=== PATIENT | female | born 1980 | race Caucasian/White ===

== ENCOUNTER 2022-05-17 15:03 | Outpatient (CLI) | payer MEDICARE, MEDICAID, SELFPAY ==
[2022-05-17 15:51] VITALS: BMI 51.8
== END 2022-05-17 15:04 | disposition home or self-care (01) ==
LOC: NUTRITION 15:04
PROVIDERS: PCP Family Medicine; Visit Provider Dietitian, Registered
DX: Z71.3 Dietary counseling and surveillance (principal); E66.9 Obesity, unspecified
CPT/HCPCS: 99211

== ENCOUNTER 2022-12-05 14:10 | Outpatient (CLI) | payer MEDICARE, MEDICAID, SELFPAY | END 2022-12-05 14:11 | disposition home or self-care (01) | LOC: AMB 12-10 13:19 | PROVIDERS: PCP Family Medicine; Visit Provider Emergency Medicine | DX: R20.0 Anesthesia of skin (principal) | CPT/HCPCS: A0425; A0427 ==

== ENCOUNTER 2022-12-05 14:37 | Emergency (ER) | payer MEDICARE, MEDICAID, SELFPAY ==
[2022-12-05 14:39] VITALS: BP 105/70; PULSE 112; RESP 16; TEMP 38.2; O2SAT 94; BMI 52.2
[2022-12-05 15:40] LABS: PCR FLU A Negative PCR FLU A (Negative); PCR FLU B Negative PCR FLU B (Negative)
[2022-12-05 16:09] LABS: SARS PCR* POSITIVE SARS-CoV-2 (Negative)
--- NOTE | 2022-12-05 16:45 | ED.GENADULT ---
HPI - General Adult General Chief complaint: Anxiety Stated complaint: High BP, knees tight Time Seen by Provider: 12/05/22 16:30 History of Present Illness HPI narrative: This 42-year-old female comes in reporting some generalized malaise. She arrives with a temperature of 100.8? F. she states that these symptoms seemed to begin early this morning about 7:00 a.m.. She has a history of anxiety and states that she felt some tingling in her arms and upper legs at various times. She has had symptoms like this in the past that she attributes to anxiety. She also has bilateral carpal tunnel syndrome. She states that she wants to have a COVID test as she was exposed to some people with COVID recently. She does not report any cough or shortness of breath. Related Data Home Medications Medication Instructions Recorded Confirmed buspirone 30 mg tablet 30 mg PO BID 12/05/22 12/05/22 calcium acetate .ROUTE 12/05/22 dulaglutide 0.75 mg/0.5 mL 0.75 mg subcut 12/05/22 [facility] duloxetine 60 mg capsule,delayed 60 mg PO DAILY 12/05/22 12/05/22 release famotidine 20 mg tablet 20 mg PO BID 12/05/22 12/05/22 fexofenadine 180 mg tablet 180 mg PO DAILY 12/05/22 12/05/22 glipizide 5 mg tablet, extended 5 mg PO DAILY 12/05/22 12/05/22 release 24 hr lancets 33 gauge (TRUEplus Lancets) 12/05/22 12/05/22 omeprazole 40 mg capsule,delayed 40 mg PO DAILY 12/05/22 12/05/22 release rosuvastatin 10 mg tablet 10 mg PO QPM 12/05/22 12/05/22 Previous Rx's Medication Instructions Recorded nirmatrelvir 150 mg-ritonavir 100 See Rx Instructions PO .COMPLEX 12/05/22 mg tablets in a dose pack #20 ea (Paxlovid) Allergies Allergy/AdvReac Type Severity Reaction Status Date / Time citalopram Allergy Unknown Verified 12/05/22 14:49 sertraline Allergy Unknown red face Verified 12/05/22 14:49 metformin AdvReac Mild Diarrhea Verified 12/05/22 14:49 Review of Systems Status of ROS: Reports: 10 or more systems reviewed and unremarkable except as noted in History and below Narrative: Constitutional: No fevers, no weight gain or loss. Eyes: No discharge. No vision changes. HENT: No congestion, no sore throat, no ear pain. Cardiovascular: No chest pain, no palpitations. Respiratory: No shortness of breath, no wheezes, no cough. Gastrointestinal: No abdominal pain, no vomiting, no diarrhea. Genitourinary: No dysuria, no hematuria. Musculoskeletal: Normal range of motion. Bilateral carpal tunnel syndrome. Skin: No rashes, no pruritis. Neurological: No dizziness, weakness, speech change. Tingling sensations that come and go that she attributes to anxiety. Endo/Heme/Allergies: No bruising or bleeding. No polydipsia. Pysch: no suicidality, no anxiety, no insomnia. All other systems reviewed and are negative. [facility] Surgical History (Updated 10/26/21 @ 10:32 by Derrick Frazier) Status post dilation and curettage ?Z98.890 - Other specified postprocedural states (ICD-10) Social History Smoking Status: Never smoker Do you use any of these nicotine containing products: None Second hand tobacco smoke exposure: No How often do you have a drink containing alcohol: never AUDIT-C Alcohol total score: 0 Non-prescribed substance use: denies use Exam Narrative: Exam Narrative: Constitutional: Well-developed, well-nourished, no acute distress. HEENT: Normocephalic, atraumatic. Neck: Normal range of motion. Nontender. Supple. Heart: Regular. No murmurs. Tachycardia. Intact distal pulses. Lungs: Clear to auscultation. No chest discomfort. No wheezes, rhonchi, or rales. Abdomen: Normal bowel sounds. Nontender. No rebound tenderness. Genitalia: Deferred. Back: No midline tenderness. Normal range of motion. Extremities: Normal range of motion. No injury. Skin: Intact. No rash. Warm. No erythema or pallor. Neurologic: No weakness. Alert and oriented. Tingling sensations coming and going in her upper and lower extremities. No unilateral weakness. Speech is normal. No facial asymmetry. She is ambulatory. Psychiatric: No suicidality. No insomnia. She reports anxiety symptoms. Nursing notes and vitals signs are reviewed. Const: Vital Signs, click to edit/add: Vital Signs - 24 hr 12/05/22 14:39 Temperature 100.8 F H Pulse Rate [Pulse Oximeter] 112 H Respiratory Rate 16 Blood Pressure [Ri ght Upper Arm] 105/70 Pulse Oximetry 94 Oxygen Delivery Me thod Room Air Course Vital Signs Vital signs: Initial Vital Signs Temperature 100.8 F H 12/05/22 14:39 Temperature Source Temporal Artery Scan 12/05/22 14:39 Pulse Rate 112 H 12/05/22 14:39 Respiratory Rate 16 12/05/22 14:39 Blood Pressure 105/70 12/05/22 14:39 Blood Pressure Mean 81 12/05/22 14:39 Blood Pressure Position Sitting 12/05/22 14:39 Pulse Oximetry 94 12/05/22 14:39 Oxygen Delivery Method Room Air 12/05/22 14:39 Vital Signs Temperature 100.8 F H 12/05/22 14:39 Pulse Rate 112 H 12/05/22 14:39 Respiratory Rate 16 12/05/22 14:39 Blood Pressure 105/70 12/05/22 14:39 Pulse Oximetry 94 12/05/22 14:39 Oxygen Delivery Method Room Air 12/05/22 14:39 Temperature 100.8 F H 12/05/22 14:39 Pulse Rate 112 H 12/05/22 14:39 Respiratory Rate 16 12/05/22 14:39 Blood Pressure 105/70 12/05/22 14:39 Pulse Oximetry 94 12/05/22 14:39 Oxygen Delivery Method Room Air 12/05/22 14:39 Medical Decision Making MDM Narrative Medical decision making narrative: This patient comes in with a fever at 100.8? F. Her symptoms began this morning. She had some associated anxiety symptoms. She was suspicious of a COVID infection as she was around some people who tested positive in the past week. COVID test today here does return positive for her. She is a candidate for Paxil of it and is interested in taking this medication. She does not have any medications she is taking that are contraindicated when taking Paxil of it. Lab Data Labs: Lab Results 12/05/22 Range/Units 14:50 SARS-CoV-2 (PCR) POSITIVE SARS-CoV-2 A (Negative) Influenza Type A (PCR) Negative PCR FLU A (Negative) Influenza Type B (PCR) Negative PCR FLU B (Negative) Discharge Plan Discharge Clinical Impression: Infection due to severe acute respiratory syndrome coronavirus 2 (SARS-CoV-2) Patient Disposition: Home, Self-Care Condition: Stable Prescriptions: New Paxlovid 150-100 mg tablets,dose pack See Rx Instructions .ROUTE .COMPLEX Qty: 20 0RF Rx Instructions: orally per package directions No Action buspirone 30 mg tablet 30 mg PO BID calcium acetate .ROUTE glipizide 5 mg tablet extended release 24hr 5 mg PO DAILY fexofenadine 180 mg tablet 180 mg PO DAILY omeprazole 40 mg capsule,delayed release(DR/EC) 40 mg PO DAILY famotidine 20 mg tablet 20 mg PO BID rosuvastatin 10 mg tablet 10 mg PO QPM duloxetine 60 mg capsule,delayed release(DR/EC) 60 mg PO DAILY (DME) lancets [TRUEplus Lancets] 33 gauge misc MISCELLANEOUS BID Trulicity 0.75 mg/0.5 mL pen injector 0.75 mg subcut Follow Up/Referrals: Mgay Zamudio DO [Primary Care Provider] - Stand Alone [facility]
[2022-12-05 17:39] VITALS: BP 112/74; PULSE 98; RESP 16; TEMP 38.2
== END 2022-12-05 17:39 | disposition home or self-care (01) ==
LOC: ED 17:01
PROVIDERS: Emergency Provider Emergency Medicine Emergency Medical Services; PCP Family Medicine
DX: U07.1 COVID-19 (principal)
CPT/HCPCS: 87631; 99283; 99284

== ENCOUNTER 2023-09-18 07:27 | Outpatient (CLI) | payer MEDICARE, MEDICAID, SELFPAY ==
--- NOTE | 2023-09-18 08:36 | W.ANESCHARGE ---
Anesthesia Charges Start Date/Time Anesthesia Start Date: 09/18/23 Anesthesia Start Time: 08:30 Stop Date/Time Anesthesia Stop Date: 09/18/23 Anesthesia Stop Time: 09:04
--- NOTE | 2023-09-18 09:07 | W.ANESCHARGE ---
Anesthesia Charges Start Date/Time Anesthesia Start Date: 09/18/23 Anesthesia Start Time: 08:30 Stop Date/Time Anesthesia Stop Date: 09/18/23 Anesthesia Stop Time: 09:04
== END 2023-09-18 07:28 | disposition home or self-care (01) ==
LOC: OP CLINIC 07:29
PROVIDERS: PCP Family Medicine; Visit Provider Internal Medicine Gastroenterology
DX: K92.1 Melena (principal); K63.5 Polyp of colon; K62.1 Rectal polyp; K64.8 Other hemorrhoids
CPT/HCPCS: 00811; 45380; 45385; 88305; J2704

== ENCOUNTER 2023-09-20 21:48 | Outpatient (CLI) | payer MEDICARE, MEDICAID, SELFPAY | END 2023-09-20 21:49 | disposition home or self-care (01) | LOC: AMB 09-25 13:10 | PROVIDERS: PCP Family Medicine; Visit Provider Emergency Medicine Emergency Medical Services | DX: F41.9 Anxiety disorder, unspecified (principal) | CPT/HCPCS: A0425; A0429 ==

== ENCOUNTER 2023-09-20 22:09 | Emergency (ER) | payer MEDICARE, MEDICAID, SELFPAY ==
[2023-09-20 22:11] VITALS: BP 160/88; PULSE 73; RESP 18; TEMP 36.8; O2SAT 96; BMI 52.6
--- NOTE | 2023-09-20 22:56 | ED_ITS ---
HPI - Anxiety General Time Seen by Provider: 22:56 Date Seen: 09/20/23 Chief Complaint: Anxiety Stated Complaint: anxiety Time Seen by Provider: 09/20/23 22:56 Source: patient, family and old records reviewed Mode of arrival: ambulatory Limitations: no limitations Related Data Home Medications ?Medication ?Instructions ?Recorded ?Confirmed buspirone 30 mg tablet 30 mg PO BID 12/05/22 12/05/22 calcium acetate .ROUTE 12/05/22 dulaglutide 0.75 mg/0.5 mL 0.75 mg subcut 12/05/22 subcutaneous pen injector (Trulicity) duloxetine 60 mg capsule,delayed 60 mg PO DAILY 12/05/22 12/05/22 release famotidine 20 mg tablet 20 mg PO BID 12/05/22 12/05/22 fexofenadine 180 mg tablet 180 mg PO DAILY 12/05/22 12/05/22 glipizide 5 mg tablet, extended 5 mg PO DAILY 12/05/22 12/05/22 release 24 hr lancets 33 gauge (TRUEplus Lancets) 12/05/22 12/05/22 omeprazole 40 mg capsule,delayed 40 mg PO DAILY 12/05/22 12/05/22 release rosuvastatin 10 mg tablet 10 mg PO QPM 12/05/22 12/05/22 Previous Rx's ?Medication ?Instructions ?Recorded nirmatrelvir 150 mg-ritonavir 100 See Rx Instructions PO .COMPLEX 12/05/22 mg tablets in a dose pack #20 ea (Paxlovid) Allergies Allergy/AdvReac Type Severity Reaction Status Date / Time citalopram Allergy Unknown Verified 09/18/23 07:37 sertraline Allergy Unknown red face Verified 09/18/23 07:37 lisinopril Allergy Verified 09/18/23 07:37 metformin AdvReac Mild Diarrhea Verified 09/18/23 07:37 [facility] Surgical History (Updated 10/26/21 @ 10:32 by Derrick Frazier) Status post dilation and curettage ?Z98.890 - Other specified postprocedural states (ICD-10) Social History Smoking Status: Never smoker Do you use any of these nicotine containing products: None Second hand tobacco smoke exposure: No How often do you have a drink containing alcohol: never AUDIT-C Alcohol total score: 0 Non-prescribed substance use: denies use Exam Const: Vital Signs, click to edit/add: Vital Signs - 24 hr 09/20/23 22:11 Temperature 98.3 F Pulse Rate [Left P ulse Oximeter] 73 Respiratory Rate 18 Blood Pressure [Ri ght Upper Arm] 160/88 H Pulse Oximetry 96 Oxygen Delivery Me thod Room Air Course Vital Signs Vital signs: Initial Vital Signs Temperature 98.3 F 09/20/23 22:11 Temperature Source Temporal Artery Scan 09/20/23 22:11 Pulse Rate 73 09/20/23 22:11 Pulse Rhythm Regular 09/20/23 22:11 Respiratory Rate 18 09/20/23 22:11 Blood Pressure 160/88 H 09/20/23 22:11 Blood Pressure Mean 112 H 09/20/23 22:11 Blood Pressure Position Sitting 09/20/23 22:11 Pulse Oximetry 96 09/20/23 22:11 Oxygen Delivery Method Room Air 09/20/23 22:11 Vital Signs Temperature 98.3 F 09/20/23 22:11 Pulse Rate 73 09/20/23 22:11 Respiratory Rate 18 09/20/23 22:11 Blood Pressure 160/88 H 09/20/23 22:11 Pulse Oximetry 96 09/20/23 22:11 Oxygen Delivery Method Room Air 09/20/23 22:11 Temperature 98.3 F 09/20/23 22:11 Pulse Rate 73 09/20/23 22:11 Respiratory Rate 18 09/20/23 22:11 Blood Pressure 160/88 H 09/20/23 22:11 Pulse Oximetry 96 09/20/23 22:11 Oxygen Delivery Method Room Air 09/20/23 22:11 Discharge Plan Discharge Prescriptions: No Action buspirone 30 mg tablet 30 mg PO BID calcium acetate .ROUTE glipizide 5 mg tablet extended release 24hr 5 mg PO DAILY fexofenadine 180 mg tablet 180 mg PO DAILY omeprazole 40 mg capsule,delayed release(DR/EC) 40 mg PO DAILY famotidine 20 mg tablet 20 mg PO BID rosuvastatin 10 mg tablet 10 mg PO QPM duloxetine 60 mg capsule,delayed release(DR/EC) 60 mg PO DAILY (DME) lancets [TRUEplus Lancets] 33 gauge misc MISCELLANEOUS BID Trulicity 0.75 mg/0.5 mL pen injector 0.75 mg subcut Paxlovid 150-100 mg tablets,dose pack See Rx Instructions .ROUTE .COMPLEX Qty: 20 0RF Rx Instructions: orally per package directions Follow Up/Referrals: Magy Zamudio DO [Primary Care Provider] -
--- NOTE | 2023-09-20 22:58 | ED.GENADULT ---
HPI - General Adult General Chief complaint: Anxiety Stated complaint: anxiety Time Seen by Provider: 09/20/23 22:56 History of Present Illness HPI narrative: pt with increased anxiety. called triage line, told to be seen . Frustrated with work, needs answers to be cleared to go back to work from [employer] . Took Hydroxyzine, 10mg prior to EMS arrival. 43-year-old woman presenting to the emergency department with concern of exacerbation of anxiety. Brought by EMS. She describes significant exacerbation of anxiety which did include tingling hands and feet. Tried her hydroxyzine but did not work. Apparently recommended by triage line to be seen in the ER. Stressors noted to be related to work/workability and working with the [employer]. Called parents who happened to be in [place] return to accompany her in the emergency department. Chronic history of anxiety. Otherwise currently she notes herself to be treated with duloxetine and buspirone. She is not describing current chest pain or shortness of breath. She is hoping yet to sleep tonight. She does have an appointment with primary tomorrow. Related Data Home Medications ?Medication ?Instructions ?Recorded ?Confirmed buspirone 30 mg tablet 30 mg PO BID 12/05/22 12/05/22 calcium acetate .ROUTE 12/05/22 dulaglutide 0.75 mg/0.5 mL 0.75 mg subcut 12/05/22 subcutaneous pen injector (Trulicity) duloxetine 60 mg capsule,delayed 60 mg PO DAILY 12/05/22 12/05/22 release famotidine 20 mg tablet 20 mg PO BID 12/05/22 12/05/22 fexofenadine 180 mg tablet 180 mg PO DAILY 12/05/22 12/05/22 glipizide 5 mg tablet, extended 5 mg PO DAILY 12/05/22 12/05/22 release 24 hr lancets 33 gauge (TRUEplus Lancets) 12/05/22 12/05/22 omeprazole 40 mg capsule,delayed 40 mg PO DAILY 12/05/22 12/05/22 release rosuvastatin 10 mg tablet 10 mg PO QPM 12/05/22 12/05/22 Previous Rx's ?Medication ?Instructions ?Recorded nirmatrelvir 150 mg-ritonavir 100 See Rx Instructions PO .COMPLEX 12/05/22 mg tablets in a dose pack #20 ea (Paxlovid) Allergies Allergy/AdvReac Type Severity Reaction Status Date / Time citalopram Allergy Unknown Verified 09/18/23 07:37 sertraline Allergy Unknown red face Verified 09/18/23 07:37 lisinopril Allergy Verified 09/18/23 07:37 metformin AdvReac Mild Diarrhea Verified 09/18/23 07:37 Review of Systems Status of ROS: Reports: 6 or more systems reviewed and unremarkable except as noted in History and below PFSH PFS Surgical History Status post dilation and curettage ?Z98.890 - Other specified postprocedural states (ICD-10) Social History Smoking Status: Never smoker Do you use any of these nicotine containing products: None Second hand tobacco smoke exposure: No How often do you have a drink containing alcohol: never AUDIT-C Alcohol total score: 0 Non-prescribed substance use: denies use Exam Narrative: Exam Narrative: Pleasant. NAD. Here with supportive parents. Larger stature, overweight. Skin is warm and dry. Heart regular rate rhythm. Moving all extremities without difficulty. She is well-perfused. Appears introspective. Const: Vital Signs, click to edit/add: Vital Signs - 24 hr 09/20/23 22:11 Temperature 98.3 F Pulse Rate [Left P ulse Oximeter] 73 Respiratory Rate 18 Blood Pressure [Ri ght Upper Arm] 160/88 H Pulse Oximetry 96 Oxygen Delivery Me thod Room Air Documenting provider has reviewed patient's vital signs: yes Course Vital Signs Vital signs: Initial Vital Signs Temperature 98.3 F 09/20/23 22:11 Temperature Source Temporal Artery Scan 09/20/23 22:11 Pulse Rate 73 09/20/23 22:11 Pulse Rhythm Regular 09/20/23 22:11 Respiratory Rate 18 09/20/23 22:11 Blood Pressure 160/88 H 09/20/23 22:11 Blood Pressure Mean 112 H 09/20/23 22:11 Blood Pressure Position Sitting 09/20/23 22:11 Pulse Oximetry 96 09/20/23 22:11 Oxygen Delivery Method Room Air 09/20/23 22:11 Vital Signs Temperature 98.3 F 09/20/23 22:11 Pulse Rate 73 09/20/23 22:11 Respiratory Rate 18 09/20/23 22:11 Blood Pressure 160/88 H 09/20/23 22:11 Pulse Oximetry 96 09/20/23 22:11 Oxygen Delivery Method Room Air 09/20/23 22:11 Temperature 98.3 F 09/20/23 22:11 Pulse Rate 73 09/20/23 22:11 Respiratory Rate 18 09/20/23 22:11 Blood Pressure 160/88 H 09/20/23 22:11 Pulse Oximetry 96 09/20/23 22:11 Oxygen Delivery Method Room Air 09/20/23 22:11 Medications Administered Medications: Discontinued Medications Generic Name Dose Route Start Last Admin Trade Name Chineduq PRN Reason Stop Dose Admin Lorazepam 1 mg 09/20/23 23:03 09/20/23 23:30 Lorazepam 1 Mg Tablet PO 09/20/23 23:04 1 mg ONCE ONE Administration Lorazepam 1 mg 09/20/23 23:30 09/20/23 23:38 Lorazepam 1 Mg Tablet PO 09/20/23 23:31 Not Given ONCE ONE Lorazepam 1 mg 09/20/23 23:30 09/20/23 23:38 Lorazepam 1 Mg Tablet PO 1 mg ONCE PRN Administration Anxiety Medical Decision Making MDM Narrative Medical decision making narrative: From history relatively clear exacerbation of anxiety. Abortive medication did not appear to be adequately effective though she does appear now, admittedly with the presence of her parents, in a better space. Will offer a dose of lorazepam here in the emergency department and a couple tablets for home in anticipation of follow-up with primary care provider tomorrow to discuss further. Medical Records Medical records reviewed: Yes I reviewed the patient's medical records Discharge Plan Discharge Clinical Impression: Anxiety attack, Other social stressor Patient Disposition: Home w/ Parent or Adult Condition: Improved Additional Instructions: Please follow-up tomorrow with your primary care provider as planned/scheduled. Hopefully you to can come up with a good plan. Giving you a couple tablets of lorazepam in case you need in the meantime. Prescriptions: No Action buspirone 30 mg tablet 30 mg PO BID calcium acetate .ROUTE glipizide 5 mg tablet extended release 24hr 5 mg PO DAILY fexofenadine 180 mg tablet 180 mg PO DAILY omeprazole 40 mg capsule,delayed release(DR/EC) 40 mg PO DAILY famotidine 20 mg tablet 20 mg PO BID rosuvastatin 10 mg tablet 10 mg PO QPM duloxetine 60 mg capsule,delayed release(DR/EC) 60 mg PO DAILY (DME) lancets [TRUEplus Lancets] 33 gauge misc MISCELLANEOUS BID Trulicity 0.75 mg/0.5 mL pen injector 0.75 mg subcut Paxlovid 150-100 mg tablets,dose pack See Rx Instructions .ROUTE .COMPLEX Qty: 20 0RF Rx Instructions: orally per package directions Follow Up/Referrals: Magy Zamudio DO [Primary Care Provider] - Stand Alone Forms: [facility] Info Instructions
[2023-09-20] MEDS: LORazepam 1 MG TABLET PO ×2 (23:30→23:38)
== END 2023-09-20 23:43 | disposition home or self-care (01) ==
PROVIDERS: Emergency Provider Family Medicine; PCP Family Medicine
DX: F41.9 Anxiety disorder, unspecified (principal); F43.9 Reaction to severe stress, unspecified
CPT/HCPCS: 99283; 99284; A9270

== ENCOUNTER 2024-11-20 08:20 | Outpatient (CLI) | payer MEDICARE, MEDICAID, SELFPAY | END 2024-11-20 08:21 | disposition home or self-care (01) | LOC: AMB 11-21 15:19 | PROVIDERS: PCP Family Medicine; Visit Provider Family Medicine | DX: R07.89 Other chest pain (principal) | CPT/HCPCS: A0425; A0427 ==

== ENCOUNTER 2024-11-20 09:03 | Emergency (ER) | payer MEDICARE, MEDICAID, SELFPAY ==
[2024-11-20] VITALS (11 sets, daily range): BP systolic 120–157; BP diastolic 65–78; PULSE 73–81; RESP 13–20; TEMP 36.6; O2SAT 93–96; BMI 51.7
--- NOTE | 2024-11-20 09:18 | CRLHL7_ITS ---
For Patients: As a result of the Century Cures Act, medical imaging exams and procedure reports are released immediately into your electronic medical record. You may view this report before your referring provider. If you have questions, please contact your health care provider. INDICATION: Chest pain TECHNIQUE: Chest 2 views COMPARISON: None FINDINGS: Cardiovascular and mediastinum: Heart size and vasculature are normal in caliber and appearance. Lungs and pleural spaces: Lungs are clear. No sign of infiltrate or mass. No sign of pleural effusion. No pneumothorax. Bones and soft tissues: No significant findings. IMPRESSION: No acute findings. Dictated by Micheal Jeffries MD @ 11/20/2024 10:41:50 AM (Electronically Signed)
[2024-11-20 09:43] LABS: Hematocrit 36.4 % (33.0-51.0); Hemoglobin* 12.3 gm/dL (12.0-16.0); Immature Granulocytes Abs Auto 0.02 K/uL (0.00-0.30); Immature Granulocytes Pct Auto 0.3 %; Mean Corpuscular HGB Conc 34 gm/dL (32-36); Mean Corpuscular Hemoglobin 29 pg (26-34); Mean Corpuscular Volume 87 fL (80-100); RDW Coefficient of Variation % 13.0 % (11.5-15.5); Red Blood Count 4.20 m/uL (4.00-5.20); White Blood Count* 6.37 K/uL (4.50-11.00)
[2024-11-20 09:50] LABS: Troponin, Point-of-Care* 0.00 ng/ml (0.01-0.04)
[2024-11-20 09:53] LABS: Lymphocytes Absolute Auto 1.20 K/uL (0.90-2.90); Slide Review Reflex No
--- OUTSIDE RECORDS SUMMARY | 2024-11-20 09:56 | XMS_ITS | Clinical Summary ---
Author Organization [facility] Address [address] [place] [address] Care Team Providers Care Literacy Teacher Name Role Phone Magy Zamudio DO Primary Care Provider [phone] Rona Chamberlain PsyD, [place] Unavailable [phone] Yelena Sinclair RN Unavailable [phone] Allergies Active Allergy Reactions Criticality Noted Date Comments Citalopram Rash 04/16/2009 Lisinopril Cough 05/09/2022 Metformin Diarrhea Low 12/05/2022 Sertraline Anxiety 11/16/2016 Medications melatonin 5 mg capsule Take 1 capsule by mouth. 0 020 Active cholecalciferol (Vitamin D-3) 2,000 unit capsule Take 1 Capsule (2,000 units) by mouth once daily. 0 021 Active hydrOXYzine HCL (ATARAX) 10 mg tabletIndications :Anxiety 1-2 tablets twice daily as needed for anxiety 30 Tablet 1 024 Active Graduated Compression StockingsIndicati ons:Numbness and tingling of both lower extremities For personal use. Length: calf Strength: 16-20 mmHg Circumference in cm: For calf: Ankle 5.5cm, Calf 51, Ankle to calf length 28.5. 1 Packet 024 Active calcium carbonate-vitamin D3, 600 mg-400 unit, 600 mg-10 mcg (400 unit) tabletIndications :Routine general health check-up of defined subpopulation TAKE 1 TABLET BY MOUTH ONCE DAILY WITH A MEAL. 90 Tablet 3 024 Active cyanocobalamin (VITAMIN B12) 1,000 mcg tabletIndications :Vitamin B12 deficiency TAKE 1 TABLET (1,000 MCG) BY MOUTH ONCE DAILY. 90 Tablet 3 024 Active fexofenadine (Felicia Allergy) 180 mg tabletIndications :Allergic rhinitis, unspecified seasonality, unspecified trigger Take 180 mg by mouth once daily with a meal. Do not crush or chew. 90 Tablet 3 024 Active olopatadine (PATANOL) 0.1 % ophthalmic solutionIndicatio ns:Conjunctivitis , unspecified conjunctivitis type, unspecified laterality Place 1 Drop into both eyes two times daily. 5 mL 5 024 Active famotidine (PEPCID) 20 mg tabletIndications :Gastroesophageal reflux disease, unspecified whether esophagitis present Take 1 Tablet (20 mg) by mouth two times daily. 180 Tablet 2 024 Active rosuvastatin (CRESTOR) 10 mg tabletIndications :Hyperlipidemia, unspecified hyperlipidemia type Take 1 Tablet (10 mg) by mouth at bedtime. 90 Tablet 2 024 Active blood sugar diagnostic (Accu-Chek Guide test strips) stripIndications: Controlled type 2 diabetes mellitus without complication, without long-term current use of insulin (HC) As directed two times daily. Dispense item covered by pt ins. E11.9 NIDDM type II - Test 2 times/day. Reason: High A1C 200 Each 3 025 Active lancets (Accu-Chek Softclix Lancets)Indicatio ns:Controlled type 2 diabetes mellitus without complication, without long-term current use of insulin (HC) Test twice a day 200 Each 3 025 Active Accu-Chek Guide Me Glucose MtrIndications:Co ntrolled type 2 diabetes mellitus without complication, without long-term current use of insulin (HC) TEST ONCE DAILY 1 Each 025 Active omeprazole 40 mg Delayed-Release capsuleIndication s:Gastric reflux TAKE ONE CAPSULE BY MOUTH ONCE DAILY BEFORE A MEAL 90 Capsule 3 025 Active CPAPIndications:O SA (obstructive sleep apnea) RESMED CPAP (E0601) machine for home use at pressure: 8 cmw, Choice of mask (A7030 or A7034) w/full face cushion (A7031) x1/mo, nasal cushion (A7032) x2/mo, or nasal pillows (A7033) x 2/mo; Length of Need: 99 months; Frequency of use: Daily 1 Each 025 Active Diabetic ShoeIndications:D iabetic peripheral neuropathy associated with type 2 diabetes mellitus (HC) As directed. Diabetic shoes 1 pair 1 Each 025 Active DULoxetine 60 mg Delayed-release capsuleIndication s:Anxiety Take 30mg capsule with 60mg to equal 90mg daily 90 Capsule 1 025 Active DULoxetine 30 mg Delayed-release capsuleIndication s:Anxiety Take 30mg capsule with 60mg to equal 90mg daily 90 Capsule 3 025 Active dulaglutide 3 mg/0.5 mL subcutaneous penIndications:Un controlled type 2 diabetes mellitus with hyperglycemia (HC) Inject 3 mg subcutaneous once weekly. 6 mL 025 Active glipiZIDE extended-release (GLUCOTROL XL) 5 mg Extended-Release tabletIndications :Uncontrolled type 2 diabetes mellitus with hyperglycemia (HC) Take 2 Tablets (10 mg) by mouth once daily before a meal. 180 Tablet 3 025 Active busPIRone (BUSPAR) 30 mg tabletIndications :MARIA G (generalized anxiety disorder) TAKE 1 TABLET (30 MG) BY MOUTH TWO TIMES DAILY. 60 Tablet 025 Active busPIRone (BUSPAR) 30 mg tabletIndications :MARIA G (generalized anxiety disorder) TAKE 1 TABLET (30 MG) BY MOUTH TWO TIMES DAILY. 180 Tablet 1 025 2024 Discontinued Hospital, Clinic, or Other Facility Administered Medication Ordered Dose Route Frequency Start Date End Date Status levonorgestrel intrauterine device (MIRENA) 1 DeviceIndications:Encounter for IUD insertion 1 Device IU Q 5 YEARS 11/04/2020 Active Active Problems Problem Noted Date Diagnosed Date Colon polyp 09/21/2023 Overview (09/21/2023): Colonoscopy 08/2023 TA, hemorrhoids repeat in 7 years Depression, recurrent 06/29/2023 Type 2 diabetes mellitus wit h other specified complication, without long-term current use of insulin 01/19/2023 Pap smear for cervical cancer screening 06/14/19 23 Overview (06/13/2022): 04/2022 NIL/HPV Negative Plan: Pap and HPV due 04/2027 Uncontrolled type 2 diabetes mellitus with hyper glycemia 04/20/2020 History of COVID-19 02/25/2020 Overview (02/15/2021): Hospitalized one night OCD (obsessive compulsive disorder) features. Controlled substance agreement signed 07/27/2016 Overview (07/27/2016): Signed 12-15-15 Chastity Bazan, FULL DECATOR OPERATOR-BC, LOAN EXAMINER/psychiatry. JAKY 01/02/2016 AHI-12, positional 01/11/2016 Encounter for long-term (current) use of medicat ions 05/28/2014 IBS (irritable bowel syndrome) 02/18/2013 MARIA G (generalized anxiety disorder) 09/12/2011 Allergic rhinitis, cause unspecified 09/05/2011 GERD (gastroesophageal reflux disease) 2 Unspecified delay in development(315.9) 11/07/19 10 Overview (09/05/2022): IQ tested in 2004 in low 60's Morbid obesity 01/29/2008 Dysthymic disorder 12/12/2006 Resolved Problems Problem Noted Date Diagnosed Date Resolved Date History of COVID-19 02/25/2020 08/13/19 22 Diet-controlled diabetes mellitus 12/23/2019 07/14/2020 OCD (obsessive compulsive disorder) features. 11/16/19 17 01/28/2019 Acute paranoia; resolved 08/20/2013 OCD (obsessive compulsive disorder) features. 01/24/20 12 01/28/2019 Anxiety Disorder, NOS with OCD traits. 04/02/2009 09/12/2011 Routine general medical exam ination at a health care facility 08/23/2007 05/21/2012 Insomnia, unspecified 12/12/20062013 Encounters Date Type Department Care Team Description 11/20/2024 Telephone [facility] [address] [place] [address] Gemma Martin MD Appointment 11/20/2024 Nurse Triage [facility] [address] [place] [address] Magy Zamudio DO Chest Pain 11/19/2024 2:00 PM CDT Phone Office Visit [address] [address] Rona Chamberlain PsyD, [place] Phone Visit 11/19/2024 Travel 11/15/2024 Telephone [facility] [address] [place] [address] Magy Zamudio DO Appointment Request 11/11/2024 Refill [facility] [address] [place] [address] Magy Zamudio DO Refill Request (Buspirone) 11/07/[address] [address] Rona Chamberlain PsyD, LP INFORMATION 11/05/[address] [address] Magy Zamudio DO Questions 11/04/2024 Refill [facility] [address] [place] [address] Magy Zamudio DO Refill Request (Glipizide Extended-release) 11/01/2024 3:00 PM CDT Office Visit [address] [address] Rona Chamberlain PsyD, LP Individual Therapy 11/01/2024 Travel 10/18/2024 2:00 PM CDT Office Visit [address] [address] Rona Chamberlain PsyD, LP Individual Therapy 10/17/2024 2:00 PM CDT Patient Outreach [address] [phone] Yelena Sinclair international recruiter (Review glucose results) 10/17/2024 Travel 10/15/2024 11:40 AM CDT Office Visit [facility] [address] [facility] [address] Magy Zamudio DO Medication Management 10/15/2024 Travel 10/04/2024 3:00 PM CDT Office Visit [facility] [address] [place] [address] Rona Chamberlain PsyD, LP Individual Therapy 10/04/2024 8:15 AM CDT Ancillary Procedure [facility] [address] [place] [address] 10/04/2024 Travel 09/30/2024 1:05 PM CDT Office Visit [facility] [address] [facility] [place] [address] Magy Zamudio DO Nausea 09/30/2024 Travel 09/27/2024 Nurse Triage [facility] [address] [facility] [place] [address] Magy Zamudio DO Vomiting 09/25/2024 Telephone [facility] [address] [facility] [place] [address] Jo Ann Beaulieu MD Results 09/24/2024 7:30 AM CDT Office Visit [facility] [address] [place] [address] Jo Ann Beaulieu MD Nausea 09/24/2024 Travel 09/20/2024 Nurse Triage [facility] [address] [place] [address] Magy Zamudio DO Nausea 09/20/2024 Telephone [facility] [address] [facility] [place] [address] Magy Zamudio DO Follow Up (Nausea); appt needed 09/12/2024 11:40 AM CDT Office Visit [facility] [address] [facility] [place] [address] Magy Zamudio DO Lab; Diabetes 09/12/2024 Refill [facility] [address] [place] [address] Magy Zamudio DO Refill Request (Mupirocin) 09/11/2024 12:00 PM CDT Office Visit [facility] [phone] [place] [address] Rona Chamberlain PsyD, LP Individual Therapy 09/11/2024 Travel 09/04/2024 Telephone [facility] [address] [place] [address] Magy Zamudio DO Form (handicapped sticker forms) 08/23/2024 3:00 PM CDT Office Visit [facility] [phone] [place] [address] Rona Chamberlain PsyD, LP [facility] Therapy[facility] 08/22/2024 1:55 PM CDT Office Visit [facility] [address] [place] [address] Magy Zamudio DO Follow Up 08/22/2024 Travel 08/21/2024 Telephone [facility] [address] [place] [address] Magy Zamudio DO Follow Up from Last 3 Months Immunizations Immunization Administration Dates Next Due AMB Influenza, IIV3 (Age >=3 years)(Flu Clinic Only) 01/15/2008 COVID-19 VACCINE SPIKEVAX (M ODERNA 50MCG/0.5ML) 12YO+ PFS 01/10/2024,02/28/2023 COVID-19 vaccine (Moderna 100mcg/0.5mL) PF, MDV 05/25/2020,04/27/2020 COVID-19 vaccine (Pfizer-Bio NTech 30mcg/0.3mL) 12YO+ BIVALENT PF, MDV 12/08/2021 DTP 11/21/1986, 3,1981,1981,1981 Hepatitis A (Adult) 01/05/2015,07/03/2014 Hepatitis B (Adult) 06/08/1995,12/28/1994,1994 INFLUENZA, IIV3 PF (AGE >= 6 MO) 11/28/2023 Influenza A (H1N1), Inactiva britta (Age >=3 Years) 03/31/2009 Influenza, IIV3 (Age >=3 years) 01/02/20 13,12/19/2011,12/13/2010,2009,11/26/2008,01/16/2007,01/09/2006,1 ,02/08/2003 Influenza, IIV4 12/22/2022, 2,12/03/2020,2019,12/18/2018,12/19/2017,12/20/2016,0 12/22/2015,12/11/2014,12/17/2013 MMR 06/25/1993,11/03/1982,07/25/1982 Oral Polio Vaccine 11/21/1986, 3,1981,1981 Pneumococcal Conj 20-valent (Prevnar 20) 02/24/2022 Pneumococcal Poly,23-Valent (Pneumovax) 07/14/2020 Td (Age >=7 Years) 07/01/1996 Tdap 09/23/2016,08/23/2007,05/29/2006 Family History Medical History Relation Name Comments Cancer Maternal Grandfather Leukemi a Diabetes Maternal Grandfather Hypertension Maternal Grandfather Other Maternal Grandmother Lupus Other Mother [place] Fibromyalgia Cancer-breast Other Mother's Cousi n Cancer-ovarian No Family History Relation Name Status Comments Brother Niall Alive Father Niall Alive Maternal Grandfather Maternal Grandmother Mother [place] Alive Other Social History Tobacco Use Types Packs/Day Years Used Date Smoking Tobacco: Never Passive Smoke Exposure: Never Smokeless Tobacco: Never Tobacco Cessation:Counseling Given: Not Answered Alcohol Use Standard Drinks/Week Comments Not Currently 0 (1 standard drink = 0.6 oz pur e alcohol) PHQ-2 Answer Date Recorded PHQ-2 TOTAL SCORE 0 10/15/2024 Social Connections Answer Date Recorded Do you often feel lonely or isolated from those around you? 0 11/15/2023 Alcohol Use Answer Date Recorded How often do you have a drink containing alcohol ? 1 05/30/2023 How many drinks containing a lcohol do you have on a typical day when you are drinking? 0 05/30/2023 How often do you have five or more drinks on one occasion? 0 05/30/2023 Financial Resource Strain Answer Date R ecorded Difficulty of Paying Living Expenses 3 11/15/2023 Difficulty of Paying Living Expenses Not on file 11/15/2023 Food Insecurity Answer Date Recorded Do you worry your food will run out before you are able to buy more? 1 11/15/2023 Transportation Needs Answer Date Record ed Does lack of transportation keep you from medica l appointments? 1 11/15/2023 Does lack of transportation keep you from work, meetings or getting things that you need? 1 11/15/2023 Housing Stability Answer Date Recorded What is your housing situation today? 1 11/15/2023 Utilities Answer Date Recorded Do you have trouble paying f or utilities (for example, heat, electricity, water, phone)? 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 [employer] Not on file Not on file Not on file Obstetrics History Para Term AB IAB SAB Ectopic Multiple Livin g Live Births 0 0 0 0 0 0 0 0 0 0 Last Filed Vital Signs Vital Sign Reading Time Taken Comments Blood Pressure 133/83 10/15/2024 11:58 AM CDT Pulse 81 10/15/2024 11:58 AM CDT Temperature 36.9 C (98.5 F) 04/24/2024 4:28 PM STRUCTURAL TECHNICIAN Respiratory Rate 18 04/24/2024 4:28 PM STRUCTURAL TECHNICIAN Oxygen Saturation 97% 10/15/2024 11: 58 AM CDT Inhaled Oxygen Concentration - - Weight 148.1 kg (326 lb 6.4 oz) 025 11:58 AM CDT Height 171.5 cm (5' 7.5) 08/15/2024 2:27 PM CDT Body Mass Index 50.37 08/15/2024 2:27 PM CDT Plan of Treatment Upcoming Encounters Date Type Department Care Team (Late st Contact Info) Description 11/29/2024 3:00 PM CDT Office Visit [address] [address] Rona Chamberlain PsyD, [place] [id number] [place] [address] 12/03/2024 2:20 PM CDT Office Visit [facility] [address] [place] [address] Magy Zamudio DO [address] [place] [address] 12/13/2024 3:00 PM CDT Office Visit [address] [address] Rona Chamberlain PsyD, [place] [id number] [place] [address] 12/27/2024 3:00 PM CDT Office Visit [address] [address] Rona Chamberlain PsyD, [place] [phone] [place] [address] 01/07/2025 2:45 PM CDT Office Visit [facility] [address] [place] [address] Magy Zamudio DO [address] [place] [address] 01/10/2025 3:00 PM CDT Office Visit [address] [address] Rona Chamberlain PsyD, [place] [phone] [place] [address] 01/20/2025 2:00 PM CDT Office Visit [facility] [address] [place] [address] Aj Kitchen MD [address] [place] [address] 01/24/2025 3:00 PM CDT Office Visit [address] [address] Rona Chamberlain [place], [place] [address] [place] [address] 01/28/2025 2:45 PM STRUCTURAL TECHNICIAN Office Visit [facility] [address] [place] [address] Magy Zamudio DO [address] [place] [address] 02/07/2025 3:00 PM STRUCTURAL TECHNICIAN Office Visit [address] [address] R[place], [place] [address] [place] [address] 02/25/2025 2:45 PM STRUCTURAL TECHNICIAN Office Visit [facility] [address] [place] [address] Magy Zamudio DO [address] [place] [address] 02/28/2025 3:00 PM STRUCTURAL TECHNICIAN Office Visit [address] [address] R[place], [place] [address] [place] [address] 03/14/2025 3:00 PM STRUCTURAL TECHNICIAN Office Visit [address] [address] Rona Chamberlain PsyD, [place] [address] [place] [address] 04/01/2025 1:00 PM STRUCTURAL TECHNICIAN Patient Outreach [address] [address] Yelena Sinclair RN [address] [facility] [facility] [place] [address] 04/01/2025 2:45 PM STRUCTURAL TECHNICIAN Office Visit [facility] [address] [place] [address] Magy Zamudio DO [address] [place] [address] 04/04/2025 3:00 PM STRUCTURAL TECHNICIAN Office Visit [address] [address] Rona Chamberlain PsyD, [place] [address] [place] [address] 04/18/2025 3:00 PM STRUCTURAL TECHNICIAN Office Visit [address] [address] Rona Chamberlain PsyD, [place] [address] [place] [address] Health Maintenance Due Date Last Done Comments Influenza Vaccine (#1) 2024 , 12/22/2022, 11/25/2021, Additional history exists BMI (ht and wt on same day) for age 18+ 08/15/2025 08/15/2024, 06/19/2024, 02/19/2024, Additional history exists Depression screening for age 12+ 10/15/2025 10/15/2024, 08/22/2024, 05/19/2024, Additional history exists Tetanus booster 09/23/2026 09/23/2016, 07/26, 05/29/2006, Additional history exists Pap test for age 21-65 05/24/2027 , 05/24/2022, 05/23/2017, Additional history exists Hepatitis B series for 19+ Completed 06/07, 12/28/1994, 11/30/1994 HIV for age 15-65 Completed 07/09/2021 Pneumococcal series for age 6-49 Completed 02/25/20, 07/14/2020 COVID-19 vaccine series Completed 01/10/20 24, 02/28/2023, 12/08/2021, Additional history exists Hepatitis C screening for ag e 18-79 Completed 09/30/2024, 07/09/2021 Goals Goal Patient Goal Type Associated Problems Recent Progress Patient-Stated? Author BLOOD PRESSURE-JOB INTAINS BP LESS THAN 130/80 Blood Pressure No Oksana Parker MA Procedures Procedure Name Priority Date/Time Associated Diagnosis Comments US ABDOMEN LIMITED GALLBLADDER Routine 10/04/2024 8:54 AM CDT Nausea Abdominal pain, RUQ (right upper quadrant) IRON PLUS IRON BINDING CAP Routine 09/30/2024 1:52 PM CDT Elevated LFTs HEPATIC FUNCTION PANEL Routine 09/30/2024 1:52 PM CDT Elevated LFTs HBSAG (HBS) Routine 09/30/2024 1:52 PM CDT Elevated LFTs ANTI HBC Routine 09/30/2024 1:52 PM CDT Elevated LFTs Encounter for screening for other viral diseases ANTI HCV Routine 09/30/2024 1:52 PM CDT Elevated LFTs URINE Routine 09/30/2024 1:52 PM CDT Nausea COMP METABOLIC PANEL Routine 09/24/2024 8:16 AM CDT Nausea LIPASE Routine 09/24/2024 8:16 AM CDT Nausea CBC WITH AUTO DIFFERENTIAL Routine 09/24/2024 8:16 AM CDT Nausea HEMOGLOBIN A1C MONITORING (POCT) Routine 09/12/2024 11:22 AM CDT Controlled type 2 diabetes mellitus without complication, without long-term current use of insulin (HC) Anxiety Morbid obesity (HC) Gastric reflux BOBCAT OPERATOR THIN PREP PAP SCREEN IMAGED Routine 05/24/2022 2:06 PM STRUCTURAL TECHNICIAN Screening for malignant neoplasm of cervix ANTI HIV 1/2 Routine 07/09/2021 9:55 AM CDT Screen for STD (sexually transmitted disease) from Last 3 Months or Most Recently Relevant to Health Maintenance Results * US ABDOMEN LIMITED GALLBLADDER (10/04/2024 8:54 AM CDT) Anatomical Region Laterality Modality Abdomen Ultrasound 10/06/2024 6:24 PM CDT Impressions 10/06/2024 6:24 PM CDT Hepatic steatosis, moderately severe. Remainder unremarkable. Dictated by Micheal Jeffries MD @ 10/06/2024 6:24:21 PM (Electronically Signed) Narrative 10/06/2024 6:24 PM CDT For Patients: As a result of the Century Cures Act, medical imaging exams and procedure reports are released immediately into your electronic medical record. You may view this report before your referring provider. If you have questions, please contact your health care provider. INDICATION: Right upper quadrant abdominal pain COMPARISON: 09/25/2015 ultrasound, 08/10/2020 CT TECHNIQUE: Real time booth scale imaging and color Doppler analysis was performed of the right upper quadrant. FINDINGS: Liver echotexture is increased. No intrahepatic mass. There is a normal appearance of the hepatic IVC and proximal abdominal aorta. There is no evidence of ascites. The gallbladder is of normal size and there is no evidence of intraluminal stones or sludge. The gallbladder wall measures 2 mm in thickness. The common bile duct is of normal size and measures 5 mm in diameter at the level of the steve hepatis. The pancreas is not well visualized. There is no evidence of a stone or hydronephrosis within the right kidney. The right kidney measures 12.1 cm in length. Procedure Note Micheal Jeffries MD - 10/06/2024 For Patients: As a result of the Cures Act, medical imagingexams and procedure reports are released immediately into your electronicmedical record. You may view this report before your referring provider.If you have questions, please contact your health care provider. INDICATION: Right upper quadrant abdominal pain COMPARISON: 09/25/2015 ultrasound, 08/10/2020 CT TECHNIQUE: Real time booth scale imaging and color Doppler analysis was performed ofthe right upper quadrant. FINDINGS: Liver echotexture is increased. No intrahepatic mass. There is a normalappearance of the hepatic IVC and proximal abdominal aorta. There is noevidence of ascites. The gallbladder is of normal size and there is noevidence of intraluminal stones or sludge. The gallbladder wall measures2 mm in thickness. The common bile duct is of normal size and measures 5mm in diameter at the level of the steve hepatis. The pancreas is notwell visualized. There is no evidence of a stone or hydronephrosis withinthe right kidney. The right kidney measures 12.1 cm in length. IMPRESSION: Hepatic steatosis, moderately severe. Remainder unremarkable. Dictated by Micheal Jeffries MD @ 10/06/2024 6:24:21 PM (Electronically Signed) us Jo Ann Beaulieu MD US Final Resul t * IRON PLUS IRON BINDING CAP (09/30/2024 1:52 PM CDT) IRON, TOTAL 63 40 - 190 mcg/dL [facility] IRON BINDING CAPACITY 363 250 - 450 mcg/dL (calc) [facility] % SATURATION 17 16 - 45 % (calc) [facility] Blood BLOOD SPECIMEN / Unknown 09/30/2024 1:52 PM CDT 09/30/2024 1:54 PM CDT [facility] CHEMISTR[facility] Final Resu lt Performing Organization Address [facility]/ZIP Co de Phone Number [facility] [address] [place] [address], [facility] [address] [place] [address] * HBSAG (HBS) (09/30/2024 1:52 PM CDT) HEPATITIS B SURFACE ANTIGEN NON-REACTI VE NON-REACTI VE [facility] Comment: For additional information, please refer to http://HDB Newco.FunGoPlay/faq/WWV989 (This link is being provided for informational/ educational purposes only.) Blood BLOOD SPECIMEN / Unknown 09/30/2024 1:52 PM CDT 09/30/2024 1:54 PM CDT [facility] SEND OUTS Final Resu lt Performing Organization Address [facility] Co de Phone Number [facility] [employer] [address] [address], [facility] [address] [place] [address] * ANTI HCV (09/30/2024 1:52 PM CDT) HEPATITIS C ANTIBODY NON-REACTI VE NON-REACT KIMBERLY [facility] Comment: HCV antibody was non-reactive. There is no laboratory evidence of HCV infection. In most cases, no further action is required. However, if recent HCV exposure is suspected, a test for HCV RNA (test code 45348) is suggested. For additional information please refer to http://HDB Newco.FunGoPlay/faq/QDB98f1 (This link is being provided for informational/ educational purposes only.) Blood BLOOD SPECIMEN / Unknown 09/30/2024 1:52 PM CDT 09/30/2024 1:54 PM CDT Magy Pepe Lizz DO SEND OUTS Final Resu lt Performing Organization Address City/[facility]/ZIP Co de Phone Number [facility] [address] [facility] [place] [address], [place] [phone] [facility] [address] [facility] [address] * ANTI HBC (09/30/2024 1:52 PM CDT) Pathologist [facility] HEPATITIS B CORE AB TOTAL NON-REACTI VE NON-REACTI VE [facility] Comment: For additional information, please refer to http://education.FunGoPlay/faq/GJQ336 (This link is being provided for informational/ educational purposes only.) Blood BLOOD SPECIMEN / Unknown 09/30/2024 1:52 PM CDT 09/30/2024 1:54 PM CDT Magy Zamudio DO SEND OUTS Final Resu lt Performing Organization Address [facility] Co de Phone Number [facility] [address] [place] [address], [place] [phone] [facility] [address] [place] [address] * URINE (09/30/2024 1:52 PM CDT) HCG, QL, URINE NEGATIVE NEGATIVE [facility] Urine URINE SPECIMEN / Unknown 09/30/2024 1:52 PM CDT 09/30/2024 1:54 PM CDT Magy Zamudio DO URINE Final Resu lt Performing Organization Address City/[facility]/ZIP Co de Phone Number [facility] [address] [facility] [place] [address], [place] [phone] [facility] [address] [facility] [place] [address] * (ABNORMAL) LIVER PANEL (HEPATIC FUNCTION PANEL) (09/30/2024 1:52 PM CDT) Pathologist [facility] PROTEIN, TOTAL 7.4 6.1 - 8.1 g/dL [facility] ALBUMIN 4.2 3.6 - 5.1 g/dL [facility] GLOBULIN 3.2 1.9 - 3.7 g/dL (calc) [facility] ALBUMIN/GLOBULIN RATIO 1.3 1.0 - 2.5 (calc) [facility] BILIRUBIN, TOTAL 0.2 0.2 - 1.2 mg/dL [facility] BILIRUBIN, DIRECT 0.0 < OR = 0.2 mg/dL [facility] BILIRUBIN, INDIRECT 0.2 0.2 - 1.2 mg/dL (calc) [facility] ALKALINE PHOSPHATASE 113 31 - 125 U/L [facility] AST 22 10 - 30 U/L [facility] ALT 35(H) 6 - 29 U/L [facility] Blood BLOOD SPECIMEN / Unknown 09/30/2024 1:52 PM CDT 09/30/2024 1:54 PM CDT Magy Zamudio DO CHEMISTRY Final Resu lt [facility] [address] [place] [address], [facility] [address] [place] [address] * CBC AND DIFFERENTIAL (09/24/2024 8:16 AM CDT) [facility] WHITE BLOOD CELL COUNT 8.1 3.8 - 10.8 Thousand/u L [facility] RED BLOOD CELL COUNT 4.42 3.80 - 5.10 Million/uL [facility] HEMOGLOBIN 13.1 11.7 - 15.5 g/dL [facility] HEMATOCRIT 40.8 35.0 - 45.0 % [facility] MCV 92.3 80.0 - 100.0 fL [facility] MCH 29.6 27.0 - 33.0 pg [facility] MCHC 32.1 32.0 - 36.0 g/dL [facility] Comment: For adults, a slight decrease in the calculated MCHC value (in the range of 30 to 32 g/dL) is most likely not clinically significant; however, it should be interpreted with caution in correlation with other red cell parameters and the patient's clinical condition. RDW 14.6 11.0 - 15.0 % [facility] PLATELET COUNT 243 140 - 400 Thousand/u L [facility] MPV 11.4 7.5 - 12.5 fL [facility] ABSOLUTE NEUTROPHILS 5,751 1,500 - 7,800 cells/uL [facility] ABSOLUTE LYMPHOCYTES 1,709 850 - 3,900 cells/uL [facility] ABSOLUTE MONOCYTES 478 200 - 950 cells/uL [facility] ABSOLUTE EOSINOPHILS 130 15 - 500 cells/uL [facility] ABSOLUTE BASOPHILS 32 0 - 200 cells/uL [facility] NEUTROPHILS 71 % [facility] LYMPHOCYTES 21.1 % [facility] MONOCYTES 5.9 % [facility] EOSINOPHILS 1.6 % [facility] BASOPHILS 0.4 % [facility] Blood BLOOD SPECIMEN / Unknown 09/24/2024 8:16 AM CDT 09/24/2024 8:16 AM CDT us Jo Ann Beaulieu MD HEMATOLOGY Final Resul t [facility] [address] [place] [address], [facility] [address] [place] [address] * LIPASE (09/24/2024 8:16 AM CDT) LIPASE 22 7 - 60 U/L [facility] Blood BLOOD SPECIMEN / Unknown 09/24/2024 8:16 AM CDT 09/24/2024 8:16 AM CDT Jo Ann Beaulieu MD CHEMISTRY Final Resul t [facility] [address] [place] [address], [facility] [address] [place] [address] * (ABNORMAL) COMP METABOLIC PANEL (09/24/2024 8:16 AM CDT) Pathologist [facility] GLUCOSE 323(H) 65 - 99 mg/dL [facility] Comment: Fasting reference interval For someone without known diabetes, a glucose value >125 mg/dL indicates that they may have diabetes and this should be confirmed with a follow-up test. UREA NITROGEN (BUN) 13 7 - 25 mg/dL [facility] CREATININE 0.86 0.50 - 0.99 mg/dL [facility] EGFR 86 > OR = 60 mL/min/1. 73m2 [facility] BUN/CREATININE RATIO SEE NOTE: 6 - 22 (calc) [facility] Comment: Not Reported: BUN and Creatinine are within reference range. SODIUM 134(L) 135 - 146 mmol/L [facility] POTASSIUM 4.1 3.5 - 5.3 mmol/L [facility] CHLORIDE 98 98 - 110 mmol/L [facility] CARBON DIOXIDE 26 20 - 32 mmol/L [facility] CALCIUM 9.1 8.6 - 10.2 mg/dL [facility] PROTEIN, TOTAL 7.0 6.1 - 8.1 g/dL [facility] ALBUMIN 4.1 3.6 - 5.1 g/dL [facility] GLOBULIN 2.9 1.9 - 3.7 g/dL (calc) [facility] ALBUMIN/GLOBULIN RATIO 1.4 1.0 - 2.5 (calc) [facility] BILIRUBIN, TOTAL 0.2 0.2 - 1.2 mg/dL [facility] ALKALINE PHOSPHATASE 106 31 - 125 U/L [facility] AST 39(H) 10 - 30 U/L [facility] ALT 45(H) 6 - 29 U/L [facility] Blood BLOOD SPECIMEN / Unknown 09/24/2024 8:16 AM CDT 09/24/2024 8:16 AM CDT Jo Ann Beaulieu MD CHEMISTRY Final Resul t Performing Organization Address City/[facility]/ZIP Co de Phone Number [facility] [address] [place] [address], [facility] [address] [place] [address] * (ABNORMAL) HEMOGLOBIN A1C MONITORING (POCT) (09/12/2024 11:22 AM CDT) POC HEMOGLOBIN A1C 7.0(H) <6.0 % OF TOTAL [facility] Comment: Any point of care results exhibiting inconsistency with the patient's clinical status should be repeated using a different testing method. Blood BLOOD SPECIMEN / Unknown 09/12/2024 11:22 AM CDT 09/12/2024 11:23 AM CDT Magy Zamudio DO CHEMISTRY Final Resu lt [facility] [address] [place] [address], [place] [phone] [facility] [address] [place] [address] * BOBCAT OPERATOR THIN PREP PAP SCREEN IMAGED (05/24/2022 2:06 PM STRUCTURAL TECHNICIAN) Case Report Gynecologic Cytology Report Case: [id number] Authorizing Provider: Magy Zamudio DO Collected: 05/24/2022 1406 Ordering Location: [facility] Received: 05/24/2022 1442 Clinic First Screen: Devan Simon Specimen: BOBCAT OPERATOR ThinPrep Vial Screening, Cervical 06/10/2022 12:31 PM CDT [facility] INTERPRETATION/ RESULT NEGATIVE FOR INTRAEPITHELIAL LESION OR MALIGNANCY (NIL) (none) 06/10/2022 12:31 PM CDT [facility] at 1231 CDT SPECIMEN ADEQUACY Satisfactory for evaluation Endocervical component present 06/10/2022 12:31 PM CDT [facility] HPV REQUEST HPV and PAP 06/10/2022 12:31 PM CDT [facility] Date of LMP hormonally supressed 06/10/2022 12:31 PM CDT [facility] Last Pap Date 05/23/17 06/10/2022 12:31 PM CDT [facility] Last Pap Result NIL 12:31 PM CDT [facility] Abnormal Pap or [place]den[place] Bx in last 5 years No 06/10/2022 12:31 PM CDT [facility] Menstrual Status Hormonally Suppressed 06/10/2022 12:31 PM CDT [facility] [place] Bx Done Today No 06/10/2022 12:31 PM CDT [facility] Additional Information None given 06/10/2022 12:31 PM CDT [facility] Comment: Cytology is screened at [facility], [facility] - [address], [place] [address] and [facility] - [address] [place] [address], [place] [address] [address] [facility] - [address] [place] [address] Interpreted at [facility] - [address] [place] [address] Automated Review Successful 06/10/2022 12:31 PM CDT [facility] Comment:Specimen processed s uccessfully by automated cras device, ThinPrep Imaging System, [employer] ANCILLARY TESTING BOBCAT OPERATOR HPV Ordered, Please see separate report 06/10/2022 12:31 PM CDT [facility] Note The pap test is a screening technique, not a diagnostic procedure. It is used primarily to screen for squamous cancers and precursor lesions. Published studies have shown that it is subject to both false negative and false positive results. The pap test should not be used as the sole means to diagnose or exclude pre-malignant and malignant lesions. 06/10/2022 12:31 PM CDT [facility] Other (Cervical) Non-Blood / Unknown 05/24/2022 2:06 PM STRUCTURAL TECHNICIAN 05/24/2022 2:42 PM STRUCTURAL TECHNICIAN Magy Zamudio DO PATHOLOGY/CYTOLOGY Final R esult [facility] [address] [place] [address], [place] * ANTI HIV 1/2 (07/09/2021 9:55 AM CDT) HIV-1/HIV-2 ANTIBODY Non-Reacti ve Non-Reacti ve 07/09/2021 5:45 PM CDT [facility] Comment:HIV-1 p24 and HIV-1/ HIV-2 Ab not detected. Blood BLOOD SPECIMEN / Unknown Venipuncture / Unknown 07/09/2021 9:55 AM CDT 07/09/2021 9:55 AM CDT Magy Zamudio DO SEND OUTS Final Resu lt [facility] [address] [place] [address], from Last 3 Months or Most Recently Relevant to Health Maintenance Insurance APPT [id number] [place] [id number] MEDICARE PB ONLY MEDICAID MEDICARE PART B HB ONLY MEDICARE PART A HB ONLY APPT [id number] [place] [id number] [facility] APPT [id number] [facility] [address] [id number] CCMSI NON-XCEL EMP [address] [address] Advance Directives Documents on File Type Date Recorded Patient Overlay Operator Expl anation Healthcare Directive 01/01/2015 2:36 PM NAVARRO JAMA, 12/25/2014 Care Teams Literacy Teacher Relationship Specialty Start Date End Date Magy Zamudio DO [address] [place] [address] PCP - General Family Practice 02/18/13 Rona Chamberlain PsyD, LP [address] [place] [address] [address] Psychology 05/13/14 Yelena Sinclair, RN [address] [place] [address] Activities Coordinator 04/26/22
[2024-11-20 10:09] LABS: Albumin* 3.8 g/dL (3.3-5.0); Chloride* 101 mmol/L (96-114); Potassium* 4.3 mmol/L (3.6-5.1); Sodium* 135 mmol/L (135-149)
[2024-11-20 10:11] LABS: Blood Urea Nitrogen* 16 mg/dL (5-24); Creatinine* 0.6 mg/dL (0.5-1.5); Est. Creatinine Clearance* 117.57; Estimated Glomerular Filt Rate 114 ml/min
[2024-11-20 10:12] LABS: Alanine Aminotransferase* 56 U/L (4-35); Alkaline Phosphatase* 97 U/L (40-150); Anion Gap 7 mEq/L (7-15); Aspartate Amino Transferase* 43 U/L (12-35); Bilirubin Direct* 0.2 mg/dL (0.0-0.5); Bilirubin Total* 0.2 mg/dL (0.1-1.5); Calcium* 8.8 mg/dL (8.4-10.6); Carbon Dioxide* 27 mmol/L (20-32); Glucose* 271 mg/dL (60-115); Total Protein* 6.8 g/dL (6.0-8.3)
--- NOTE | 2024-11-20 10:33 | ED.GENADULT ---
HPI - General Adult General Chief complaint: Chest Pain Stated complaint: chest pain Time Seen by Provider: 11/20/24 09:15 Source: patient Mode of arrival: EMS Limitations: no limitations History of Present Illness HPI narrative: 44-year-old female presents today with chest pain that started approximately 10 hours ago. Pain is substernal does not radiate. Nothing really makes it better or worse. Does not take her breath away. No diaphoresis. She felt a little nauseated when it started but that has since resolved. No vomiting. Patient denies any new physical activity. She went to the [facility] about a week ago, no other traveling. No recent surgeries. Deep inspiration does not change her discomfort. She states that she was having a hard time breathing through her CPAP when this all started but that resolved. Eating breakfast this morning did not change her discomfort. Patient does have a history of anxiety which has caused chest pain in the past. She states that she is expecting important phone call today and she is wondering if that can be contributing to her symptoms. She received nitro and aspirin in the rig but that did not really change her discomfort. She denies coughing or recent illness. Related Data Home Medications ?Medication ?Instructions ?Recorded ?Confirmed buspirone 30 mg tablet 30 mg PO BID 12/05/22 11/20/24 duloxetine 60 mg capsule,delayed 60 mg PO DAILY 12/05/22 11/20/24 release famotidine 20 mg tablet 20 mg PO BID 12/05/22 11/20/24 fexofenadine 180 mg tablet 180 mg PO DAILY 12/05/22 11/20/24 glipizide 5 mg tablet, extended 5 mg PO DAILY 12/05/22 11/20/24 release 24 hr lancets 33 gauge (TRUEplus Lancets) 12/05/22 11/20/24 omeprazole 40 mg capsule,delayed 40 mg PO DAILY 12/05/22 11/20/24 release rosuvastatin 10 mg tablet 10 mg PO QPM 12/05/22 11/20/24 calcium 600 mg (as tab PO DAILY 11/20/24 carbonate)-vitamin D3 10 mcg (400 unit) tablet cyanocobalamin (vitamin B-12) 1,000 mcg PO DAILY 11/20/24 11/20/24 1,000 mcg tablet dulaglutide 3 mg/0.5 mL 3 mg subcut 11/20/24 subcutaneous pen injector ([facility]) duloxetine 30 mg capsule,delayed mg PO 11/20/24 release Held on 11/20/24. Instructions: Doctor's Order glipizide 10 mg tablet, extended 10 mg PO DAILY 11/20/24 11/20/24 release 24 hr Allergies Allergy/AdvReac Type Severity Reaction Status Date / Time citalopram Allergy Unknown Verified 09/18/23 07:37 sertraline Allergy Unknown red face Verified 09/18/23 07:37 lisinopril Allergy Verified 09/18/23 07:37 metformin AdvReac Mild Diarrhea Verified 09/18/23 07:37 Review of Systems Status of ROS: Reports: 10 or more systems reviewed and unremarkable except as noted in History and below PFSH PFS Surgical History Status post dilation and curettage ?Z98.890 - Other specified postprocedural states (ICD-10) Social History Smoking Status: Never smoker Do you use any of these nicotine containing products: None Second hand tobacco smoke exposure: No How often do you have a drink containing alcohol: never AUDIT-C Alcohol total score: 0 Non-prescribed substance use: denies use Exam Narrative: Exam Narrative: Obese, well-developed patient in no acute distress. Alert and oriented x3. Answers questions appropriately. Mood and affect are appropriate. Thoughts are goal oriented and rational. No tangential or magical thinking noted. Patient speaks in full sentences without needing to catch her breath. Patient is not appear ill or toxic. Does not appear uncomfortable. HEENT: Normocephalic atraumatic. Pupils are equally round reactive to light. Extraocular muscles are intact. Conjunctivae are moist without any icterus noted. Moist mucous membranes. Posterior pharynx is normal. Neck is soft. Cardiovascular: Heart is regular rate and rhythm S1 and S2 are present without any murmurs. Lungs: Clear to auscultation bilaterally no wheezes rhonchi or rales are appreciated. Patient takes deep breaths without any discomfort. I can reproduce her discomfort with palpation of the sternum. Abdomen: Soft and nontender nondistended with normal bowel sounds. Protuberant. Extremities: Bilateral lower extremities are without edema. Skin: Well perfused without any obvious rashes. Const: Vital Signs, click to edit/add: Vital Signs - 24 hr 11/20/24 09:09 11/20/24 09:20 11/20/24 09:30 Temperature 98 F Pulse Rate 81 80 Pulse Rate [Pulse Oximeter] 80 Respiratory Rate 20 16 13 Blood Pressure Blood Pressure [Ri ght Upper Arm] 157/78 H Pulse Oximetry 95 94 95 Oxygen Delivery Me thod Room Air 11/20/24 09:40 11/20/24 09:50 11/20/24 10:00 Temperature Pulse Rate 77 73 Pulse Rate [Pulse Oximeter] Respiratory Rate 17 16 Blood Pressure Blood Pressure [Ri ght Upper Arm] Pulse Oximetry 96 95 93 Oxygen Delivery Me thod 11/20/24 10:02 11/20/24 10:15 Temperature Pulse Rate 80 76 Pulse Rate [Pulse Oximeter] Respiratory Rate 13 18 Blood Pressure 122/71 Blood Pressure [Ri ght Upper Arm] Pulse Oximetry 96 94 Oxygen Delivery Me thod Course Course ED Course: EKG, read by me, shows normal sinus rhythm with a pulse of 85. She does have the left axis deviation with an incomplete right bundle-branch block and a prolonged QT. Blood work is unremarkable. Glucose is elevated at 271. Troponins are negative. Chest x-ray, read by me, does not show any acute pathology. Vital Signs Vital signs: Initial Vital Signs Temperature 98 F 11/20/24 09:09 Temperature Source Temporal Artery Scan 11/20/24 09:09 Pulse Rate 80 11/20/24 09:09 Respiratory Rate 20 11/20/24 09:09 Blood Pressure 157/78 H 11/20/24 09:09 Blood Pressure Mean 104 11/20/24 09:09 Blood Pressure Position Supine 11/20/24 09:09 Pulse Oximetry 95 11/20/24 09:09 Oxygen Delivery Method Room Air 11/20/24 09:09 Vital Signs Temperature 98 F 11/20/24 09:09 Pulse Rate 80 11/20/24 09:09 Respiratory Rate 20 11/20/24 09:09 Blood Pressure 157/78 H 11/20/24 09:09 Pulse Oximetry 95 11/20/24 09:09 Oxygen Delivery Method Room Air 11/20/24 09:09 Temperature 98 F 11/20/24 09:09 Pulse Rate 76 11/20/24 10:15 Respiratory Rate 18 11/20/24 10:15 Blood Pressure 122/71 11/20/24 10:02 Pulse Oximetry 94 11/20/24 10:15 Oxygen Delivery Method Room Air 11/20/24 09:09 Medical Decision Making MDM Narrative Medical decision making narrative: 44-year-old female with chest pain reproduced with palpation. Workup is unremarkable. Patient is not tachypneic, tachycardic or hypoxic. With a normal workup 10 hours into her symptoms do not think that her symptoms represent an acute coronary syndrome. Symptoms are inconsistent with aortic dissection. She has no other findings that would suggest PE. X-ray has no evidence of pneumothorax, pneumonia. No laboratory or EKG findings that would suggest a pericarditis or myocarditis. We discussed symptomatic treatment with a heating pad to the chest and Tylenol. We discussed reasons for follow-up. Lab Data Lab results reviewed: Yes I reviewed the patient's lab results Labs: Lab Results 11/20/24 11/20/24 Range/Units 09:19 09:30 WBC 6.37 (4.50-11.00) K/uL RBC 4.20 (4.00-5.20) m/uL Hgb 12.3 (12.0-16.0) gm/dL Hct 36.4 (33.0-51.0) % MCV 87 (80-100) fL MCH 29 (26-34) pg MCHC 34 (32-36) gm/dL RDW Coeff of Yang 13.0 (11.5-15.5) % Plt Count 213 (140-440) K/uL Neut % (Auto) 71.4 (42.0-72.0) % Lymph % (Auto) 19.2 L (20-44) % Chaves % (Auto) 6.4 (0.0-11.0) % Eos % (Auto) 2.2 (0.0-7.0) % Baso % (Auto) 0.5 (0.0-3.0) % Neut # (Auto) 4.55 (1.7-7.0) K/uL Lymph # (Auto) 1.20 (0.90-2.90) K/uL Chaves # (Auto) 0.40 (0.00-0.90) K/UL Eos # (Auto) 0.14 (0.00-0.50) K/uL Baso # (Auto) 0.03 (0.00-0.30) K/uL Abs Immat Gran (auto) 0.02 (0.00-0.30) K/uL Imm/Tot Granulo (auto) 0.3 % Sodium 135 (135-149) mmol/L Potassium 4.3 (3.6-5.1) mmol/L Chloride 101 (96-114) mmol/L Carbon Dioxide 27 (20-32) mmol/L Anion Gap 7 (7-15) mEq/L BUN 16 (5-24) mg/dL Creatinine 0.6 (0.5-1.5) mg/dL Estimated Creat Clear 117.57 Estimated GFR 114 ml/min Glucose 271 H (60-115) mg/dL Calcium 8.8 (8.4-10.6) mg/dL Total Bilirubin 0.2 (0.1-1.5) mg/dL Direct Bilirubin 0.2 (0.0-0.5) mg/dL AST 43 H (12-35) U/L ALT 56 H (4-35) U/L Alkaline Phosphatase 97 (40-150) U/L Troponin I < 0.01 (0.01-0.04) ng/mL C-Reactive Protein 0.8 (0.5-1.0) mg/dL Total Protein 6.8 (6.0-8.3) g/dL Albumin 3.8 (3.3-5.0) g/dL Lipase 65 (23-300) U/L POC Troponin I 0.00 L (0.01-0.04) ng/ml ECG Data Attestation: I personally reviewed and interpreted this ECG as follows: Discharge Plan Discharge Clinical Impression: Atypical chest pain Patient Disposition: Home, Self-Care Condition: Stable Additional Instructions: Workup today did not reveal what is causing her chest pain. I would recommend heat to the chest wall as needed, for 20 minutes at a time every 2-3 hours. Do not apply heat directly to the skin. Also recommend Tylenol 500 mg every 6 hours as needed. If your pain gets worse, you develop vomiting, or increasing shortness of breath then you should return to the ER. Prescriptions: No Action glipizide 10 mg tablet extended release 24hr 10 mg PO DAILY cyanocobalamin (vitamin B-12) 1,000 mcg tablet 1,000 mcg PO DAILY duloxetine 30 mg capsule,delayed release(DR/EC) PO calcium carbonate-vitamin D3 600 mg-10 mcg (400 unit) tablet PO DAILY Trulicity 3 mg/0.5 mL pen injector 3 mg subcut buspirone 30 mg tablet 30 mg PO BID glipizide 5 mg tablet extended release 24hr 5 mg PO DAILY fexofenadine 180 mg tablet 180 mg PO DAILY omeprazole 40 mg capsule,delayed release(DR/EC) 40 mg PO DAILY famotidine 20 mg tablet 20 mg PO BID rosuvastatin 10 mg tablet 10 mg PO QPM duloxetine 60 mg capsule,delayed release(DR/EC) 60 mg PO DAILY (DME) lancets [TRUEplus Lancets] 33 gauge misc MISCELLANEOUS BID Follow Up/Referrals: Magy Zamudio DO [Primary Care Provider, Family Practice] Stand Alone Forms: MyHealth Info Instructions
== END 2024-11-20 10:51 | disposition home or self-care (01) ==
PROVIDERS: Emergency Provider Family Medicine; PCP Family Medicine
DX: R07.9 Chest pain, unspecified (principal)
CPT/HCPCS: 36415; 71046; 80048; 80076; 83690; 84484; 85025; 86140; 93005; 94761; 99284

== ENCOUNTER 2024-12-02 17:27 | Emergency (ER) | payer MEDICARE, MEDICAID, SELFPAY ==
--- OUTSIDE RECORDS SUMMARY | 2024-12-02 17:29 | XMS_ITS | Clinical Summary ---
Author Organization [facility] Address [address] [place] [address] Care Team Providers Care Practice Coordinator Name Role Phone Magy Zamudio DO Primary Care Provider [phone] Rnoa Chamberlain PsyD, [place] Unavailable [phone] Yelena Sinclair RN Unavailable [phone] Allergies Active Allergy Reactions Criticality Noted Date [...] 07/27/2016 Overview (07/27/2016): Signed 12-15-15 Chastity Bazan, TAXI SERVICER-BC, HELIARC WELDER/psychiatry. JAKY 01/02/2016 AHI-12, positional 01/11/2016 Encounter for [...] Encounters Date Type Department Care Team Description 12/02/2024 Nurse Triage [facility] [address] [place] [address] Magy Zamudio DO Chest Pain 11/29/2024 Travel 11/27/2024 3:10 PM CDT Office Visit [facility] [address] [place] [address] Magy Zamudio DO ER Follow up ([facility], 11/20/2024, chest pain) 11/27/2024 Travel 11/20/2024 Orders Only [facility] Scanner 1 scan: (1-Ord) [facility], XR CHEST 2V, 11/20/2024 11/20/2024 Telephone [facility] [address] [place] [address] Gemma Martin MD Appointment 11/20/2024 Nurse Triage [facility] [address] [place] [address] Magy Zamudio DO Chest Pain 11/19/2024 2:00 PM CDT Phone Office Visit [address] [address] Rona Chamberlain PsyD, [place] Phone Visit 11/19/2024 Travel 11/15/2024 Telephone [facility] [address] [place] [address] Magy Zamudio DO Appointment Request 11/11/2024 Refill [facility] [address] [place] [address] Magy Zamudio DO Refill Request (Buspirone) 11/07/[address] [address] Rona Chamberlain PsyD, [place] INFORMATION 11/05/2024 Telephone [facility] [address] [place] [address] Magy Zamudio DO Questions 11/04/2024 Refill [facility] [address] [place] [address] Magy Zamudio DO Refill Request (Glipizide Extended-release) 11/01/2024 3:00 PM CDT Office Visit [facility] [address] [place] [address] Rona Chamberlain PsyD, LP Individual Therapy 11/01/2024 Travel 10/18/2024 2:00 PM CDT Office Visit [facility] [address] [place] [address] Rona Chamberlain PsyD, LP Individual Therapy 10/17/2024 2:00 PM CDT Patient Outreach [address] [address] Yelena Sinclair RN Diabetes (Review glucose results) 10/17/2024 Travel 10/15/2024 11:40 AM CDT Office Visit [facility] [address] [facility] [place] [address] Magy Zamudio DO Medication Management 10/15/2024 Travel 10/04/2024 3:00 PM CDT Office Visit [facility] [address] [place] [address] Rona Chamberlain PsyD, LP Individual Therapy 10/04/2024 8:15 AM CDT Ancillary Procedure [facility] [address] [place] [address] 10/04/2024 Travel 09/30/2024 1:05 PM CDT Office Visit [facility] [address] [place] [address] Magy Zamudio DO Nausea 09/30/2024 Travel 09/27/2024 Nurse Triage [facility] [address] [facility] [place] [address] Magy Zamudio DO Vomiting 09/25/2024 Telephone [facility] [address] [place] [address] Jo Ann Beaulieu MD Results 09/24/2024 7:30 AM CDT Office Visit [facility] [address] [place] [address] Jo Ann Beaulieu MD Nausea 09/24/2024 Travel 09/20/2024 Nurse Triage [facility] [address] [place] [address] Magy Zamudio DO Nausea 09/20/2024 Telephone [facility] [address] [place] [address] Magy Zamudio DO Follow Up (Nausea); appt needed 09/12/2024 11:40 AM CDT Office Visit [facility] [address] [place] [address] Magy Zamudio DO Lab; Diabetes 09/12/2024 Refill [facility] [address] [place] [address] Magy Zamudio DO Refill Request (Mupirocin) 09/11/2024 12:00 PM CDT Office Visit [facility] [address] [place] [address] Rona Chamberlain PsyD, [place] Individual Therapy 09/11/2024 Travel 09/04/2024 Telephone [facility] [address] [place] [address] Magy Zamudio DO Form (handicapped sticker forms) from Last 3 Months Immunizations Immunization Administration [...] Never Smokeless Tobacco: Never Tobacco Cessation:Counseling Given: No Alcohol Use Standard Drinks/Week Comments Not Currently [...] on file Legal Sex Female 6:31 AM [facility] Gender Identity Not on file Sexual Orientation Not on file 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 Industry 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 Start Date Job End 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 [employer] Not on file Not on file Not on file Obstetrics History Para Term AB IAB SAB Ectopic Multiple Livin g Live Births 0 0 0 0 0 0 0 0 0 0 Last Filed Vital Signs Vital Sign Reading Time Taken Comments Blood Pressure 118/74 11/27/2024 3:09 PM CDT Pulse 76 11/27/2024 3:09 PM CDT Temperature 36.9 C (98.5 F) 04/24/2024 4:28 PM [facility] Respiratory Rate 18 04/24/2024 4:28 PM [facility] Oxygen Saturation 96% 11/27/2024 3:09 PM CDT Inhaled Oxygen Concentration - - Weight 149 kg (328 lb 8 oz) 11/27/2024 3:09 PM C DT Height 171.5 cm (5' 7.5) 08/15/2024 2:27 PM CDT Body Mass Index 50.69 08/15/2024 2:27 PM CDT Plan of Treatment Upcoming Encounters Date Type Department Care Team (Late st Contact Info) Description 12/13/2024 3:00 PM CDT Office Visit [facility] [address] [place] [address] Rona Chamberlain PsyD, [place] [address] [place] [address] 12/19/2024 3:10 PM CDT Office Visit [facility] [address] [place] [address] Magy Zamudio DO [address] [place] [address] 12/24/2024 3:10 PM CDT Office Visit [facility] [address] [place] [address] Magy Zamudio DO [address] [place] [address] 12/27/2024 3:00 PM CDT Office Visit [facility] [address] [place] [address] Rona Chamberlain PsyD, [place] [address] [place] [address] 01/07/2025 2:45 PM CDT Office Visit [facility] [address] [place] [address] Magy Zamudio DO [address] [place] [address] 01/17/2025 3:00 PM CDT Office Visit [address] [address] Rona Chamberlain PsyD, [place] [address] 01/20/2025 2:00 PM CDT Office Visit [facility] [address] [place] [address] Aj Kitchen MD [address] [place] [address] 01/24/2025 3:00 PM CDT Office Visit [facility] [address] [place] [address] Rona Chamberlain PsyD, [place] [address] [place] [address] 01/28/2025 2:45 PM [facility] Office Visit [facility] [address] [place] [address] Magy Zamudio DO [address] [place] [address] 02/07/2025 3:00 PM [facility] Office Visit [address] [address] Rona Chamberlain PsyD, LP [address] [place] [address] 02/14/2025 3:00 PM [facility] Office Visit [address] [address] Rona Chamberlain PsyD, [address] [address] 02/25/2025 2:45 PM [facility] [employer] Office Visit [facility] [address] [place] [address] Magy Zamudio DO [address] [place] [address] 02/28/2025 3:00 PM [facility] Office Visit [address] [address] Rona [place], [place] [address] [place] [address] 03/14/2025 3:00 PM [facility] Office Visit [address] [address] [place] [address] [place] [address] 04/01/2025 1:00 PM [facility] Patient Outreach [address] [address] Yelena Sinclair RN [address] [place] [address] 04/01/2025 2:45 PM [facility] Office Visit [facility] [address] [place] [address] Magy Zamudio DO [address] [place] [address] 04/04/2025 3:00 PM [facility] Office Visit [address] [address] [place] [address] [place] [address] 04/18/2025 3:00 PM [facility] Office Visit [address] [address] Rona Chamberlain PsyD, LP [address] [place] [address] 04/29/2025 2:20 PM [facility] Office Visit [facility] [address] [place] [address] Magy Zamudio DO [address] [place] [address] 05/02/2025 3:00 PM [facility] Office Visit [address] [address] Rona Chamberlain PsyD, LP [address] [place] [address] 05/16/2025 3:00 PM [facility] Office Visit [address] [address] Rona Chamberlain PsyD, LP [address] [place] [address] 05/30/2025 3:00 PM [facility] Office Visit [address] [address] Rona Chamberlain PsyD, LP [address] [place] [address] 06/13/2025 3:00 PM CDT Office Visit [address] [address] Rona Chamberlain PsyD, LP [address] [place] [address] 06/27/2025 3:00 PM CDT Office Visit [address] [address] Rona Chamberlain PsyD, LP [address] [place] [address] 07/11/2025 3:00 PM CDT Office Visit [address] [address] [place] [address] [place] [address] 07/25/2025 3:00 PM CDT Office Visit [address] [address] R[place] [address] [place] [address] 08/08/2025 3:00 PM CDT Office Visit [address] [address] [place] [address] [place] [address] 08/22/2025 3:00 PM CDT Office Visit [address] [address] Rona Chamberlain PsyD, LP [address] [place] [address] 09/05/2025 3:00 PM CDT Office Visit [address] [address] Rona Chamberlain PsyD, LP [address] [place] [address] 09/19/2025 3:00 PM CDT Office Visit [address] [address] Rona Chamberlain PsyD, LP [address] [place] [address] 10/03/2025 3:00 PM CDT Office Visit [address] [address] Rona Chamberlain PsyD, LP [address] [place] [address] 10/17/2025 3:00 PM CDT Office Visit [address] [address] Rona Chamberlain PsyD, LP [address] [place] [address] 10/31/2025 3:00 PM CDT Office Visit [address] [address] Rona Chamberlain PsyD, LP [address] [place] [address] 11/14/2025 3:00 PM CDT Office Visit [address] [address] Rona Chamberlain PsyD, LP [address] [place] [address] Health Maintenance Due Date Last Done Comments HPV series for age 9-45 (1 - 3-dose SCDM series) 2008 Influenza Vaccine (#1) 2024 , 12/22/2022, 11/25/2021, Additional history exists BMI (ht and wt on same day) for age 18+ 08/15/2025 08/15/2024, 06/19/2024, 02/19/2024, Additional history exists Depression screening for age 12+ 10/15/2025 10/15/2024, 08/22/2024, 05/19/2024, Additional history exists Tetanus booster 09/23/2026 09/23/2016, 07/26, 05/29/2006, Additional history exists Pap test for age 21-65 05/24/2027 , 05/24/2022, 05/23/2017, Additional history exists RSV vaccine for adults or (1 - 1-dose 75+ series) 2056 Hepatitis B series for 19+ Completed 06/07, [...] Procedure Name Priority Date/Time Associated Diagnosis Comments SCAN-RADIOLOGY REPORT 11/20/2024 12:00 AM CDT US ABDOMEN LIMITED GALLBLADDER Routine 10/04/2024 8:54 [...] (HC) Anxiety Morbid obesity (HC) Gastric reflux MAINTENANCE FITTER THIN PREP PAP SCREEN IMAGED Routine 05/24/2022 2:06 PM [facility] Screening for malignant neoplasm of cervix ANTI HIV 1/2 Routine 07/09/2021 9:55 AM CDT Screen for STD (sexually transmitted disease) from Last 3 Months or Most Recently Relevant to Health Maintenance Results * SCAN-RADIOLOGY REPORT (11/20/2024 12:00 AM CDT) Anatomical Region Laterality Modality Other us Scanner OTHER Final Result * US ABDOMEN LIMITED GALLBLADDER (10/04/2024 8:54 [...] 1:52 PM CDT 09/30/2024 1:54 PM CDT [facility] My Zamudio CHEMISTRY Final Resu lt Performing Organization Address [facility] Co de Phone Number [facility] [address] [place] [address], [facility] [address] [place] [address] * HBSAG (HBS) (09/30/2024 1:52 PM CDT) HEPATITIS B SURFACE ANTIGEN NON-REACTI VE NON-REACTI VE [facility] Comment: For additional information, please refer to http://[employer].EpiVax/faq/DLA294 (This link is being provided for informational/ educational purposes only.) Blood BLOOD SPECIMEN / Unknown 09/30/2024 1:52 PM CDT 09/30/2024 1:54 PM CDT Magy Zamudio DO SEND OUTS Final Resu lt Performing Organization Address [facility] Co de Phone Number [facility] [address] [place] [address], [facility] [address] [place] [address] * ANTI HCV (09/30/2024 1:52 PM CDT) HEPATITIS C ANTIBODY NON-REACTI VE NON-REACT KIMBERLY [facility] Comment: HCV antibody was non-reactive. There is no laboratory evidence of HCV infection. In most cases, no further action is required. However, if recent HCV exposure is suspected, a test for HCV RNA (test code 05497) is suggested. For additional information please refer to http://[employer].EpiVax/faq/DSP28v5 (This link is being provided for informational/ educational purposes only.) Blood BLOOD SPECIMEN / Unknown 09/30/2024 1:52 PM CDT 09/30/2024 1:54 PM CDT Magy Pepe Lizz DO SEND OUTS Final Resu lt Performing Organization Address [facility] Co de Phone Number [facility] [address] [place] [address], [place] [phone] [facility] [address] [place] [address] * ANTI HBC (09/30/2024 1:52 PM CDT) Pathologist [facility] HEPATITIS B CORE AB TOTAL NON-REACTI VE NON-REACTI VE [facility] Comment: For additional information, please refer to http://[employer].EpiVax/faq/NVX431 (This link is being provided for informational/ educational purposes only.) Blood BLOOD SPECIMEN / Unknown 09/30/2024 1:52 PM CDT 09/30/2024 1:54 PM CDT Magy My Zamudio DO SEND OUTS Final Resu lt Performing Organization Address [facility] Co de Phone Number [facility] [address] [place] [address], [place] [phone] [facility] [address] [place] [address] * URINE (09/30/2024 1:52 PM CDT) HCG, QL, URINE NEGATIVE NEGATIVE [facility] Urine URINE SPECIMEN / Unknown 09/30/2024 1:52 PM CDT 09/30/2024 1:54 PM CDT Magy My Stortz DO URINE Final Resu lt [facility] [address] [facility] [place] [address], [place] [phone] [facility] [address] [place] [address] * (ABNORMAL) LIVER PANEL (HEPATIC FUNCTION PANEL) [...] ALKALINE PHOSPHATASE 113 31 - 125 U/L [facility] AST 22 10 - 30 U/L [facility] ALT 35(H) 6 - 29 U/L [facility] Blood BLOOD SPECIMEN / Unknown 09/30/2024 1:52 PM CDT 09/30/2024 1:54 PM CDT Magy Zamudio DO CHEMISTRY Final Resu lt Performing Organization Address City/[facility]/ZIP Co de Phone Number 4-Tell [facility] [address] [facility] [place] [address], [place] [phone] [facility] [address] [place] [address] * CBC AND DIFFERENTIAL (09/24/2024 8:16 AM CDT) WHITE BLOOD CELL COUNT 8.1 3.8 - [...] Ann Beaulieu MD HEMATOLOGY Final Resul t 4-Tell [facility] [address] [place] [address], [place] [phone] [facility] [address] [place] [address] * LIPASE (09/24/2024 8:16 AM CDT) [facility] LIPASE 22 7 - 60 U/L [facility] [place] Blood BLOOD SPECIMEN / Unknown 09/24/2024 8:16 AM CDT 09/24/2024 8:16 AM CDT us Jo Ann Beaulieu MD CHEMISTRY Final Resul t 4-Tell [facility] [address] [place] [address], [facility] [address] [place] [address] * (ABNORMAL) COMP METABOLIC PANEL (09/24/2024 8:16 AM CDT) [facility] GLUCOSE 323(H) 65 - 99 mg/dL [facility] Comment: Fasting reference interval For someone without known diabetes, a glucose value >125 mg/dL indicates that they may have diabetes and this should be confirmed with a follow-up test. UREA NITROGEN (BUN) 13 7 - 25 mg/dL [facility] CREATININE 0.86 0.50 - 0.99 [...] Ann Beaulieu MD CHEMISTRY Final Resul t 4-Tell [facility] [address] [place] [address], [place] [phone] [facility] [address] [place] [address] * (ABNORMAL) HEMOGLOBIN A1C MONITORING (POCT) (09/12/2024 11:22 AM CDT) POC HEMOGLOBIN A1C 7.0(H) <6.0 % OF TOTAL HGB [facility] Comment: Any point of care results exhibiting inconsistency with the patient's clinical status should be repeated using a different testing method. Blood BLOOD SPECIMEN / Unknown 09/12/2024 11:22 AM CDT 09/12/2024 11:23 AM CDT us Magy Zamudio DO CHEMISTRY Final Resu lt [facility] [address] [place] [address], [place] [phone] [facility] [address] [place] [address] * MAINTENANCE FITTER THIN PREP PAP SCREEN IMAGED (05/24/2022 2:06 PM [facility]) Case Report Gynecologic Cytology Report Case: [id number] Authorizing Provider: Magy Zamudio DO Collected: 05/24/2022 1406 Ordering Location: [facility] Received: 05/24/2022 1442 Clinic First Screen: Devan Simon Specimen: MAINTENANCE FITTER ThinPrep Vial Screening, Cervical 06/10/2022 12:31 PM CDT [facility] INTERPRETATION/ RESULT NEGATIVE FOR INTRAEPITHELIAL LESION OR MALIGNANCY (NIL) (none) 06/10/2022 12:31 PM CDT [facility] at 1231 CDT SPECIMEN ADEQUACY Satisfactory for evaluation Endocervical component present 06/10/2022 12:31 PM CDT [facility] HPV REQUEST HPV and PAP 06/10/2022 12:31 PM CDT [facility] Date of LMP hormonally supressed 06/10/2022 12:31 PM CDT [facility] Last Pap Date 05/23/17 06/10/2022 12:31 PM CDT [facility] Last Pap Result NIL 12:31 PM CDT [facility] Abnormal Pap or [place] Bx in last 5 years No 06/10/2022 12:31 PM CDT [facility] Menstrual Status Hormonally Suppressed 06/10/2022 12:31 PM CDT [facility] [place] Bx Done Today No 06/10/2022 12:31 PM CDT [facility] Additional Information None given 06/10/2022 12:31 PM CDT [facility] Comment: Cytology is screened at [facility] Fwd: [facility], [facility] - [address], [place] [address] and [facility] - [address], [place] [address] and [facility] [address], [place] [address] Interpreted at [place] [address] [address], [place] [address] Automated Review Successful 06/10/2022 12:31 PM CDT [facility] Comment:Specimen processed s uccessfully by automated nurse specialist device, ThinPrep Imaging System, [employer] ANCILLARY TESTING MAINTENANCE FITTER HPV Ordered, Please see separate report 06/10/2022 12:31 PM CDT [facility] Note The pap test is a [...] and malignant lesions. 06/10/2022 12:31 PM CDT [facility] Other (Cervical) Non-Blood / Unknown 05/24/2022 2:06 PM [facility] 05/24/2022 2:42 PM [facility] Magy Zamudio DO PATHOLOGY/CYTOLOGY Final R esult [facility] [address] [place] [address], * ANTI HIV 1/2 (07/09/2021 9:55 AM CDT) HIV-1/HIV-2 ANTIBODY Non-Reacti ve Non-Reacti ve 07/09/2021 5:45 PM CDT [facility] Comment:HIV-1 p24 and HIV-1/ HIV-2 Ab not detected. Blood BLOOD SPECIMEN / Unknown Venipuncture / Unknown 07/09/2021 9:55 AM CDT 07/09/2021 9:55 AM CDT Magy Zamudio DO SEND OUTS Final Resu lt [facility] [address] [place] [address], from Last 3 Months or Most Recently Relevant to Health Maintenance Insurance MEDICARE PB ONLY MEDICAID MEDICARE PART B HB ONLY MEDICARE PART A HB ONLY APPT [id number] [id number] [facility] APPT [id number] [place] [address] [id number] CCMSI NON-XCEL EMP Advance Directives Documents on File Type Date Recorded Patient [facility] [employer] Expl anation Healthcare Directive 01/01/2015 2:36 PM NAVARRO JAMA, 12/25/2014 Care Teams Practice Coordinator Relationship Specialty Start Date End Date Magy Zamudio DO [address] [place] [address] [address] PCP - General Family Practice 02/18/13 Rona Chamberlain PsyD, LP [address] [place] [address] [address] Psychology 2/17/15 Yelena Sinclair RN [address] [place] [address] Alignment Technician 04/26/22
[2024-12-02 17:39] VITALS: BP 157/88; PULSE 102; RESP 24; TEMP 36.5; O2SAT 95; BMI 51.4
--- NOTE | 2024-12-02 18:00 | ED.CHESTPAIN ---
HPI - Chest Pain General Time Seen by Provider: 18:01 Date Seen: 12/02/24 Chief Complaint: Chest Pain Stated Complaint: chest pains Time Seen by Provider: 12/02/24 17:39 Source: patient Mode of arrival: ambulatory Limitations: no limitations History of Present Illness HPI narrative: 44-year-old female who presents today with chest pain. Patient reports left-sided chest pain that started earlier today, no shortness of breath, no nausea vomiting, worse with movement. Seen for similar couple weeks ago with negative evaluation. Related Data Home Medications ?Medication ?Instructions ?Recorded ?Confirmed buspirone 30 mg tablet 30 mg PO BID 12/05/22 12/02/24 duloxetine 60 mg capsule,delayed 60 mg PO DAILY 12/05/22 12/02/24 release famotidine 20 mg tablet 20 mg PO BID 12/05/22 12/02/24 fexofenadine 180 mg tablet 180 mg PO DAILY 12/05/22 12/02/24 glipizide 5 mg tablet, extended 5 mg PO DAILY 12/05/22 12/02/24 release 24 hr lancets 33 gauge (TRUEplus Lancets) 12/05/22 11/20/24 omeprazole 40 mg capsule,delayed 40 mg PO DAILY 12/05/22 12/02/24 release rosuvastatin 10 mg tablet 10 mg PO QPM 12/05/22 12/02/24 calcium 600 mg (as tab PO DAILY 11/20/24 carbonate)-vitamin D3 10 mcg (400 unit) tablet cyanocobalamin (vitamin B-12) 1,000 mcg PO DAILY 11/20/24 12/02/24 1,000 mcg tablet dulaglutide 3 mg/0.5 mL 3 mg subcut 11/20/24 subcutaneous pen injector ([facility]) duloxetine 30 mg capsule,delayed mg PO 11/20/24 release Held on 11/20/24. Instructions: Doctor's Order glipizide 10 mg tablet, extended 10 mg PO DAILY 11/20/24 12/02/24 release 24 hr Allergies Allergy/AdvReac Type Severity Reaction Status Date / Time citalopram Allergy Unknown Verified 12/02/24 17:37 sertraline Allergy Unknown red face Verified 12/02/24 17:37 lisinopril Allergy Verified 12/02/24 17:37 metformin AdvReac Mild Diarrhea Verified 12/02/24 17:37 PFSH PFSH Surgical History Status post dilation and curettage ?Z98.890 - Other specified postprocedural states (ICD-10) Social History Smoking Status: Never smoker Do you use any of these nicotine containing products: None Second hand tobacco smoke exposure: No How often do you have a drink containing alcohol: never AUDIT-C Alcohol total score: 0 Non-prescribed substance use: denies use Exam Narrative Exam Narrative: General: Well-developed and well-nourished, no acute distress Head: Atraumatic and normocephalic Eyes: Pupils are equal reactive, extraocular motions intact, conjunctiva clear ENT: External nose and ears are normal, posterior pharynx without erythema or exudate Neck: No midline cervical tenderness, full spontaneous range of motion the neck, trachea midline, no adenopathy Heart: Regular rate and rhythm no murmurs or thrills Lungs: Clear to auscultation bilaterally without wheezes or crackles. Tenderness along the left sternocostal border which reproduces symptoms Abdomen: Soft, nontender, nondistended with active bowel sounds Musculoskeletal: No tenderness, deformity, or edema Neurologic: Awake, alert, and oriented x3, no gross focal neurologic deficits, cranial nerves intact as tested Psych: Mood and affect are appropriate Skin: No rashes Const Vital Signs, click to edit/add: Vital Signs - 24 hr 12/02/24 17:39 Temperature 97.7 F Pulse Rate [Pulse Oximeter] 102 H Respiratory Rate 24 Blood Pressure [Right Forearm] 157/88 H Pulse Oximetry 95 Oxygen Delivery Method Room Air Course Course ED Course: Reviewed prior emergency department visit from November 20 the patient was seen with chest pain, negative emergency department evaluation including a negative troponin, negative D-dimer, normal CBC. Patient presents today with left-sided chest pain today, no shortness of breath, no nausea vomiting, worse with movement and reproducible with palpation. Suspect musculoskeletal pain. Labs are ordered along with EKG. Consider CT PE study if D-dimer is positive. EKG independently interpreted by me performed at 6:25 p.m. demonstrates sinus rhythm rate 83, incomplete right bundle-branch block, QTC 460, NH 176, no acute ischemic changes, no change from prior of October 2024. Reevaluation(s) Time of Reevaluation #1: 19:15 Reevaluation #1: Labs independently interpreted by me with normal CBC, normal basic panel, negative BNP, negative troponin. If D-dimer is negative, patient can be discharged. Time of Reevaluation #2: 19:33 Reevaluation #2: Labs independently interpreted by me with negative D-dimer, stable for discharge Vital Signs Vital signs: Initial Vital Signs Temperature 97.7 F 12/02/24 17:39 Temperature Source Temporal Artery Scan 12/02/24 17:39 Pulse Rate 102 H 12/02/24 17:39 Respiratory Rate 24 12/02/24 17:39 Blood Pressure 157/88 H 12/02/24 17:39 Blood Pressure Mean 111 H 12/02/24 17:39 Pulse Oximetry 95 12/02/24 17:39 Oxygen Delivery Method Room Air 12/02/24 17:39 Vital Signs Temperature 97.7 F 12/02/24 17:39 Pulse Rate 102 H 12/02/24 17:39 Respiratory Rate 24 12/02/24 17:39 Blood Pressure 157/88 H 12/02/24 17:39 Pulse Oximetry 95 12/02/24 17:39 Oxygen Delivery Method Room Air 12/02/24 17:39 Temperature 97.7 F 12/02/24 17:39 Pulse Rate 102 H 12/02/24 17:39 Respiratory Rate 24 12/02/24 17:39 Blood Pressure 157/88 H 12/02/24 17:39 Pulse Oximetry 95 12/02/24 17:39 Oxygen Delivery Method Room Air 12/02/24 17:39 Medications Administered Medications: Discontinued Medications Generic Name Dose Route Start Last Admin Trade Name Freq PRN Reason Stop Dose Admin Ketorolac Tromethamine 15 mg 12/02/24 18:12 12/02/24 19:31 Ketorolac 15 Mg/Ml Inj IVP 12/02/24 18:13 15 mg ONCE ONE Administration MDM - Chest Pain Lab Data Labs: Lab Results 12/02/24 12/02/24 Range/Units 18:13 18:40 WBC 8.80 (4.50-11.00) K/uL RBC 4.13 (4.00-5.20) m/uL Hgb 12.0 (12.0-16.0) gm/dL Hct 35.8 (33.0-51.0) % MCV 87 (80-100) fL MCH 29 (26-34) pg MCHC 34 (32-36) gm/dL RDW Coeff of Yang 13.3 (11.5-15.5) % Plt Count 235 (140-440) K/uL Neut % (Auto) 78.5 H (42.0-72.0) % Lymph % (Auto) 13.1 L (20-44) % [place] % (Auto) 6.5 (0.0-11.0) % Eos % (Auto) 1.5 (0.0-7.0) % Baso % (Auto) 0.2 (0.0-3.0) % Neut # (Auto) 6.90 (1.7-7.0) K/uL Lymph # (Auto) 1.20 (0.90-2.90) K/uL [place] # (Auto) 0.60 (0.00-0.90) K/UL Eos # (Auto) 0.13 (0.00-0.50) K/uL Baso # (Auto) 0.02 (0.00-0.30) K/uL Abs Immat Gran (auto) 0.02 (0.00-0.30) K/uL Imm/Tot Granulo (auto) 0.2 % D-Dimer Quant (PE/DVT) 0.31 (0.00-0.50) ug/ml Sodium 134 L (135-149) mmol/L Potassium 4.6 (3.6-5.1) mmol/L Chloride 98 (96-114) mmol/L Carbon Dioxide 29 (20-32) mmol/L Anion Gap 7 (7-15) mEq/L BUN 15 (5-24) mg/dL Creatinine 0.6 (0.5-1.5) mg/dL Estimated Creat Clear 117.57 Estimated GFR 114 ml/min Glucose 264 H (60-115) mg/dL Calcium 8.8 (8.4-10.6) mg/dL Magnesium 1.8 (1.5-2.6) mg/dL NT-Pro-B Natriuret Pep < 20 (See Note) pg/mL POC Troponin I 0.01 (0.01-0.04) ng/ml Discharge Plan Discharge Clinical Impression: Acute chest wall pain Patient Disposition: Home, Self-Care Condition: Stable Instructions: Noncardiac Chest Pain (ED), Chest Wall Pain (ED) Additional Instructions: Take Tylenol and ibuprofen as needed for pain Activity Level: Activity as Tolerated Discharge Diet: Regular Prescriptions: No Action glipizide 10 mg tablet extended release 24hr 10 mg PO DAILY cyanocobalamin (vitamin B-12) 1,000 mcg tablet 1,000 mcg PO DAILY duloxetine 30 mg capsule,delayed release(DR/EC) PO calcium carbonate-vitamin D3 600 mg-10 mcg (400 unit) tablet PO DAILY Trulicity 3 mg/0.5 mL pen injector 3 mg subcut buspirone 30 mg tablet 30 mg PO BID glipizide 5 mg tablet extended release 24hr 5 mg PO DAILY fexofenadine 180 mg tablet 180 mg PO DAILY omeprazole 40 mg capsule,delayed release(DR/EC) 40 mg PO DAILY famotidine 20 mg tablet 20 mg PO BID rosuvastatin 10 mg tablet 10 mg PO QPM duloxetine 60 mg capsule,delayed release(DR/EC) 60 mg PO DAILY (DME) lancets [TRUEplus Lancets] 33 gauge misc MISCELLANEOUS BID Follow Up/Referrals: Magy Zamudio DO [Primary Care Provider, Family Practice] Stand Alone Forms: MyHealth Info Instructions
[2024-12-02 18:45] LABS: Hematocrit* 35.8 % (33.0-51.0); Hemoglobin* 12.0 gm/dL (12.0-16.0); Immature Granulocytes Abs Auto 0.02 K/uL (0.00-0.30); Immature Granulocytes Pct Auto 0.2 %; Mean Corpuscular HGB Conc 34 gm/dL (32-36); Mean Corpuscular Hemoglobin 29 pg (26-34); Mean Corpuscular Volume 87 fL (80-100); RDW Coefficient of Variation % 13.3 % (11.5-15.5); Red Blood Count* 4.13 m/uL (4.00-5.20); White Blood Count* 8.80 K/uL (4.50-11.00)
[2024-12-02 18:52] LABS: Lymphocytes Absolute Auto 1.20 K/uL (0.90-2.90); Slide Review Reflex No
[2024-12-02 18:58] LABS: Chloride* 98 mmol/L (96-114); Potassium* 4.6 mmol/L (3.6-5.1); Sodium* 134 mmol/L (135-149)
[2024-12-02 19:00] LABS: Blood Urea Nitrogen* 15 mg/dL (5-24); Creatinine* 0.6 mg/dL (0.5-1.5); Est. Creatinine Clearance* 117.57; Estimated Glomerular Filt Rate 114 ml/min
[2024-12-02 19:01] LABS: Anion Gap 7 mEq/L (7-15); Calcium* 8.8 mg/dL (8.4-10.6); Carbon Dioxide* 29 mmol/L (20-32); Glucose* 264 mg/dL (60-115)
[2024-12-02 19:04] LABS: Troponin, Point-of-Care* 0.01 ng/ml (0.01-0.04)
[2024-12-02 19:07] LABS: D Dimer Quantitative* 0.31 ug/ml (0.00-0.50)
[2024-12-02 19:13] LABS: NT Pro B Type NatriureticPept* < 20 pg/mL (See Note)
[2024-12-02 19:34] VITALS: BP 143/95; PULSE 78; RESP 16; O2SAT 98
== END 2024-12-02 19:53 | disposition home or self-care (01) ==
PROVIDERS: Emergency Provider Family Medicine; PCP Family Medicine
DX: R07.89 Other chest pain (principal)
CPT/HCPCS: 36415; 80048; 83735; 83880; 84484; 85025; 85379; 93005; 96374; 99284; J1885